=== PATIENT | female | born 1975 | race African-American/Black ===

== ENCOUNTER 2017-03-04 13:53 | Emergency (ER) | payer MEDICARE, MEDICAID ==
[~2017-03-04] VITALS: Ht 160 cm; Wt 55.0 kg
[2017-03-04] VITALS (7 sets, daily range): BP systolic 157–220; BP diastolic 89–119; PULSE 72–79; RESP 18; TEMP 98.6; O2SAT 97–99
[~2017-03-04 13:53] MED LIST: HYDR-2768 PO; LISI-360 PO; RISP2TAB2 PO
[2017-03-04] MEDS ORDERED: ATEN25TA PO (14:23)
[2017-03-04] MEDS ORDERED: hydrALAZINE HCL 20 MG/ML VIAL IV PUSH ONE ×2 (14:45→16:15)
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
[2017-03-04] MEDS ORDERED: TETANUS/DIPHTHERIA TOXOID ADULT 0.5 ML VIAL IM ONE (15:00)
[2017-03-04 15:12] LABS: AUTOMATED NEUTROPHIL # 2.7 TH/MM3 (1.8-7.7); BASOPHIL % 0.8 % (0.0-2.0); EOSINOPHIL % 0.8 % (0.0-4.0); HEMATOCRIT 36.5 % (35.0-46.0); HEMO FLAGS DIFF FINAL; LYMPH % 32.1 % (9.0-44.0); LYMPHOCYTE # 1.5 TH/MM3 (1.0-4.8); MEAN CELL VOLUME 74.7 FL (80.0-100.0); MEAN CORPUSCULAR HEMOGLOBIN 23.3 PG (27.0-34.0); MEAN CORPUSCULAR HGB CONC 31.2 % (32.0-36.0); MONO % 9.4 % (0.0-8.0); NEUT % 56.9 % (16.0-70.0); PLATELET COUNT 297 TH/MM3 (150-450); RED BLOOD COUNT 4.88 MIL/MM3 (4.00-5.30); RED CELL DISTRIBUTION WIDTH 14.6 % (11.6-17.2); WHITE BLOOD COUNT 4.7 TH/MM3 (4.0-11.0)
[2017-03-04 15:23] LABS: BACTERIA, URINE RARE /hpf; BLOOD, URINE SMALL (NEG); COMMENT (UR) CULTURE INDICATED; CULTURE IF INDICATED CULTURE INDICATED; GLUCOSE,URINE NEG (NEG); KETONE, URINE NEG (NEG); MUCUS URINE MANY /lpf (OCC); NITRITE,URINE NEG (NEG); PH, URINE 5.5 (5.0-8.5); SQUAMOUS EPITHELIAL CELL URINE 8 /hpf (0-5); URINE COLOR YELLOW (YELLW/STRAW)
[2017-03-04 15:29] LABS: ALT (GPT) 16 U/L (10-53); AMPHETAMINE, URINE NEG (NEG); ANION GAP 9 MEQ/L (5-15); AST (GOT) 17 U/L (15-37); BARBITURATES, URINE NEG (NEG); BICARBONATE 25.2 MEQ/L (21.0-32.0); BLOOD UREA NITROGEN 12 MG/DL (7-18); CHLORIDE 105 MEQ/L (98-107); COCAINE, URINE NEG (NEG); GLOMERULAR FILTRATION RATE 72 ML/MIN (>89); POTASSIUM 3.1 MEQ/L (3.5-5.1); SODIUM (NA) 139 MEQ/L (136-145)
[2017-03-04 15:31] LABS: ALKALINE PHOSPHATASE 69 U/L (45-117); TOTAL BILIRUBIN ADULT 0.7 MG/DL (0.2-1.0)
[2017-03-04] MEDS ORDERED: SULFAMETHOXAZOLE-TRIMETHOPRIM DS 800-160 MG TAB PO ONE (16:15)
[2017-03-04] MEDS ORDERED: POTASSIUM CHLORIDE 20 MEQ CONTROLLED RELEASE TAB PO ONE (17:00)
[2017-03-04] MEDS ORDERED: ATENOLOL 25 MG TAB PO ONE (22:15)
[2017-03-04] MEDS ORDERED: ACETAMINOPHEN 325 MG TAB PO ONE (22:15)
[2017-03-05 00:02] VITALS: BP 178/84; PULSE 69; RESP 18
[2017-03-05] MEDS ORDERED: KETOROLAC TROMETHAMINE 60 MG/2 ML (IM) VIAL IM ONE (00:15)
[2017-03-05 02:25] VITALS: BP 148/92; PULSE 74; RESP 18; O2SAT 100
[2017-03-05 06:28] VITALS: BP 161/93; PULSE 75; RESP 18; O2SAT 97
[2017-03-05 10:00] VITALS: BP 188/103; PULSE 64; RESP 18
[2017-03-05 10:45] VITALS: BP 182/105; PULSE 63
[2017-03-05] MEDS ORDERED: cloNIDine HCL 0.2 MG TAB PO ONE (11:00)
[2017-03-05 12:42] VITALS: BP 116/70; PULSE 62; RESP 16
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
== END 2017-03-05 15:30 | disposition home or self-care (01) ==
LOC: NEPD 13:53 → NEPJ 03-05 15:30
DX: F20.9 Schizophrenia, unspecified (principal); I10 Essential (primary) hypertension; R82.71 Bacteriuria; B96.20 Unspecified Escherichia coli [E. coli] as the cause of diseases classified elsewhere; S01.511A Laceration without foreign body of lip, initial encounter; Y04.2XXA Assault by strike against or bumped into by another person, initial encounter; Z23 Encounter for immunization
CPT/HCPCS: 80053; 80307; 81001; 84703; 85025; 87077; 87086; 87186; 90471; 90714; 96374; 96375; 99284; J0360; J1885

== ENCOUNTER 2017-05-18 09:39 | Inpatient (IN) | payer MEDICARE, MEDICAID ==
[~2017-05-18] VITALS: Ht 160 cm; Wt 55.2 kg
[~2017-05-18 09:39] MED LIST changes: +ATEN25TA PO; -HYDR-2768 PO; -LISI-360 PO; -RISP2TAB2 PO
[2017-05-18 10:21] VITALS: BP 181/96; PULSE 92; RESP 16; TEMP 98.3; O2SAT 100
--- NOTE | 2017-05-18 11:05 | PD ---
HPI Chief Complaint: Psychiatric Symptoms Time Seen by Provider: 10:26 Travel History International Travel<30 days: No Contact w/Intl Traveler<30days: No Traveled to known affect area: No History of Present Illness HPI So 42 year-old woman who presents to the emergency department under a Brooke act. She reportedly received an eviction notice today and is here "getting my vitals checked". She is extremely flat in her affect, monotone, and extremely difficult to get any meaningful history out of. Review of the records shows that she was admitted with schizophrenia for evaluation a few months ago. Her had just left. The water and internal couple months ago because it was not paying bills. Patient endorses that she is on SSI vital cannot or will not so me why. She states that she's not employed because she is "not in the workforce". She states something happened that led to her not being able to pay her rent that she again cannot or will not tell me what that was. She states "it's really self explanatory but I cannot explain it". When asked explicitly denies any past medical history or any history of mental health problems. History Past Medical History Narrative Medical Medical records indicate a history of schizophrenia LMP: 05/11/17 : 2 Past Surgical History Surgical History: No Previous Surgery Social History Alcohol Use: No Tobacco Use: No Allergies-Medications (Allergen,Severity, Reaction): Coded Allergies: No Known Allergies (Unverified , 12/17/13) Reported Meds & Prescriptions Reported Meds & Active Scripts Active Review of Systems Except as stated in HPI: all other systems reviewed are Neg Physical Exam Narrative GENERAL: 42 year-old woman, flat affect, poor eye contact. SKIN: Focused skin assessment warm/dry. HEAD: Atraumatic. Normocephalic. EYES: Pupils equal and round. No scleral icterus. No injection or drainage. ENT: No nasal bleeding or discharge. Mucous membranes pink and moist. NECK: Trachea midline. No JVD. CARDIOVASCULAR: Regular rate and rhythm. No murmur appreciated. RESPIRATORY: No accessory muscle use. Clear to auscultation. Breath sounds equal bilaterally. GASTROINTESTINAL: Abdomen soft, non-tender, nondistended. Hepatic and splenic margins not palpable. MUSCULOSKELETAL: No obvious deformities. No clubbing. No cyanosis. No edema. NEUROLOGICAL: Awake and alert. No obvious cranial nerve deficits. Motor grossly within normal limits. Normal speech. PSYCHIATRIC: Patient appears psychotic, flat, poor eye contact. Data Data Last Documented VS Vital Signs Date Time Temp Pulse Resp B/P Pulse Ox O2 Delivery O2 Flow Rate FiO2 05/18/17 10:26 92 16 05/18/17 10:21 98.3 181/96 100 Orders Complete Blood Count With Diff (05/18/17 10:56) Comprehensive Metabolic Panel (05/18/17 10:56) Psych Screen (05/18/17 10:56) Drug Screen, Random Urine (05/18/17 10:56) MDM Medical Decision Making Medical Screen Exam Complete: Yes Emergency Medical Condition: Yes Differential Diagnosis Psychosis, PDD, MR, other Narrative Course Medical decision making Is a 42 year-old woman who presents to the emergency department after being evicted. She appears to have untreated schizophrenia this is stabilized to the point that she is now unable to function independently for a number of months. She has no somatic complaints. We'll check screening labs. She is medically clear for psychiatric evaluation. Diagnosis Primary Impression: Schizophrenia Bhavin Frey MD May 18, 2017 11:05
[2017-05-18 11:27] LABS: AUTOMATED NEUTROPHIL # 3.4 TH/MM3 (1.8-7.7); BASOPHIL % 0.9 % (0.0-2.0); EOSINOPHIL % 0.1 % (0.0-4.0); HEMATOCRIT 21.8 % (35.0-46.0); HEMO FLAGS DIFF FINAL; LYMPH % 16.3 % (9.0-44.0); LYMPHOCYTE # 0.7 TH/MM3 (1.0-4.8); MEAN CELL VOLUME 74.7 FL (80.0-100.0); MEAN CORPUSCULAR HEMOGLOBIN 25.1 PG (27.0-34.0); MEAN CORPUSCULAR HGB CONC 33.7 % (32.0-36.0); MONO % 7.9 % (0.0-8.0); NEUT % 74.8 % (16.0-70.0); PLATELET COUNT 332 TH/MM3 (150-450); RED BLOOD COUNT 2.92 MIL/MM3 (4.00-5.30); WHITE BLOOD COUNT 4.6 TH/MM3 (4.0-11.0)
[2017-05-18 11:46] LABS: ANION GAP 6 MEQ/L (5-15); AST (GOT) 13 U/L (15-37); BICARBONATE 26.5 MEQ/L (21.0-32.0); BLOOD UREA NITROGEN 11 MG/DL (7-18); CHLORIDE 106 MEQ/L (98-107); GLOMERULAR FILTRATION RATE 74 ML/MIN (>89); POTASSIUM 3.2 MEQ/L (3.5-5.1); SODIUM (NA) 138 MEQ/L (136-145)
[2017-05-18 11:47] LABS: ALT (GPT) 12 U/L (10-53)
[2017-05-18 11:49] LABS: ALKALINE PHOSPHATASE 51 U/L (45-117); TOTAL BILIRUBIN ADULT 0.5 MG/DL (0.2-1.0)
[2017-05-18 15:30] VITALS: BP 193/100; PULSE 69; RESP 18; TEMP 98.7; O2SAT 100
[2017-05-18] MEDS ORDERED: ATENOLOL 50 MG TAB PO ONE (17:30)
[2017-05-18 22:20] VITALS: BP 162/81; PULSE 62; RESP 18
[2017-05-19 05:56] VITALS: BP 155/82; PULSE 57; RESP 16
[2017-05-19 10:00] VITALS: BP 169/95; PULSE 62; RESP 20
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
[2017-05-19] MEDS ORDERED: MAGNESIUM HYDROXIDE SUSP 30 ML CUP PO PRN (13:00)
[2017-05-19] MEDS ORDERED: ALUMINUM/MAGNESIUM/SIMETH 30 ML CUP PO PRN (13:00)
[2017-05-19] MEDS ORDERED: ACETAMINOPHEN 325 MG TAB PO PRN (13:00)
[2017-05-19 13:15] VITALS: BP 188/102; PULSE 75; RESP 16; TEMP 97.7
[2017-05-19] MEDS ORDERED: POTASSIUM CHLORIDE 10 MEQ CONTROLLED RELEASE TAB PO ONE (15:00)
--- NOTE | 2017-05-19 15:55 | PD.CONS ---
[facility] By PANCHO Rick Reason for Consult Abnormal lab results. Primary Care Physician No Primary Care Physician Diagnoses: History of Present Illness Written by Foster Meehan, acting as scribe for Dr. Geo Hanna on 05/19/17 at 15: 55. Ms. Posey is 42 yo, with a reported history of hypertension and untreated x 4 years who presents to the emergency department under a [place] act. The BA alleges that she was evicted and when deputies arrived she barricaded herself in the residence. When they were able to enter the residence she covered her face and would not speak with them. She was placed under BA as the police felt she was unsafe and needed treatment. On arrival to Ed she was not providing any meaningful history to ED provider. Making statements such as "it's really self explanatory but I cannot explain it". Per the medical record, Ms. Posey was evaluated in February after she was placed under a BA. The records indicate she was living with her and had been without water and electricity for the past 6 months. She could not provide an explanation for their situation. Upon discharge she was released to the care of her Ritchie. Today, Ms. Posey was encountered in her room on the 2600 unit, she was tearful and reported "missing my ." She did not explain why she was hospitalized. She spoke with a soft voice and her answers were short. She evidenced comprehension issues when Dr. Hanna discussed the treatment for anemia and the potential need for blood transfusion. Pt did not provide a definitive answer regarding blood transfusion as her hemoglobin upon admission was 7.3. She reported her last menstrual cycle was 05/11/17; cycles were reported to be "once a month." Pt denied fever, cough, shortness of breath, dizziness, chest pain, bloody urine or stool, NVD, abdominal pain, or difficulty with ambulation. A 10 point ROS was completed and, except as noted above, was negative. Past Family Social History Allergies: Coded Allergies: No Known Allergies (Unverified , 12/17/13) Past Medical History Hypertension Schizophrenia, untreated for past 4 years. Past Surgical History Previous surgical history was denied. Reported Medications Pt denied taking any prescribed medications at this time. Active Ordered Medications Current Medications Medications (Trade) Dose Ordered Sig/Soy Route Start Time Stop Time Status Last Admin (Tylenol) 650 mg Q4H PRN PO 05/19/17 13:00 (Milk Of Magnesia Liq) 30 ml DAILY PRN PO 05/19/17 13:00 (Mag-Al Plus Susp Liq) 30 ml Q6H PRN PO 05/19/17 13:00 Family History Patient said she was unaware of family medical history. She denied diabetic and heart disease histories. Social History Pt denied nicotine use. Alcohol use was denied. Illicit and/or recreational drugs were denied. Physical Exam Vital Signs Vital Signs Date Time Temp Pulse Resp B/P Pulse Ox O2 Delivery O2 Flow Rate FiO2 05/19/17 13:15 97.7 75 16 188/102 05/19/17 10:00 62 20 169/95 Auto-Vent 05/19/17 05:56 57 16 155/82 05/18/17 22:20 62 18 162/81 Physical Exam GENERAL: This is a well-nourished, well-developed patient, in no apparent distress. SKIN: No rashes, ecchymoses or lesions. Cool and dry. HEAD: Atraumatic. Normocephalic. No temporal or scalp tenderness. EYES: Pupils equal round and reactive. Extraocular motions intact. No scleral icterus. No injection or drainage. ENT: Nose without bleeding or purulent drainage. Airway patent. NECK: Trachea midline. No lymphadenopathy. Supple and nontender. CARDIOVASCULAR: Regular rate and rhythm without murmurs, gallops, or rubs. RESPIRATORY: Clear to auscultation. Breath sounds equal bilaterally. No wheezes , rales, or rhonchi. GASTROINTESTINAL: Abdomen soft, non-tender, nondistended. No hepato- splenomegaly or guarding. MUSCULOSKELETAL: Extremities without clubbing, cyanosis, or edema. No joint tenderness, effusion, or edema noted. NEUROLOGICAL: Awake and alert. Cranial nerves II through XII intact. Motor and sensory grossly within normal limits. Five out of 5 muscle strength in all muscle groups. Speech was soft yet fluent. Result Diagram: 05/18/17 1109 05/18/17 110 Assessment and Plan Assessment and Plan Ms. Posey is 42 yo, with a reported history of hypertension and untreated x 4 years who presents to the emergency department under a [place] act. The BA alleges that she was evicted and when deputies arrived she barricaded herself in the residence. When they were able to enter the residence she covered her face and would not speak with them. She was placed under BA as the police felt she was unsafe and needed treatment. On arrival to Ed she was not providing any meaningful history to ED provider. Making statements such as "it's really self explanatory but I cannot explain it". Schizophrenia -Treatment deferred to primary team. Microcytic anemia - Iron/TIBC studies -B-12 lab -serum folate -fecal occult blood -CBC in the AM Thank you for the consult. Hospitalist team will continue to follow This note was transcribed by shanel LAWRENCE . I, Dr. Cheryl Hanna personally performed the history, physical exam, and medical decision making; and confirmed the accuracy of the information in the transcribed note. Authenticated by Dr. Cheryl Hanna on 05/19/17 at 15:55. Discussed Condition With Patient and [facility] plans staff officer Foster Meehan Jr. May 19, 2017 15:55 Cheryl Hanna MD May 19, 2017 19:34
[2017-05-19 20:39] LABS: FERRITIN 2 NG/ML (8-252); TRANSFERRIN IRON PROFILE 190 MG/DL (200-360)
[2017-05-20 06:25] VITALS: BP 135/87; PULSE 75; RESP 18; TEMP 98; O2SAT 99
[2017-05-20 12:12] LABS: HEMATOCRIT 22.8 % (35.0-46.0); MEAN CELL VOLUME 75.1 FL (80.0-100.0); MEAN CORPUSCULAR HEMOGLOBIN 24.8 PG (27.0-34.0); PLATELET COUNT 410 TH/MM3 (150-450); RED BLOOD COUNT 3.03 MIL/MM3 (4.00-5.30); RED CELL DISTRIBUTION WIDTH 16.2 % (11.6-17.2); REVIEW FLAG FINAL; WHITE BLOOD COUNT 6.1 TH/MM3 (4.0-11.0)
[2017-05-20 12:18] LABS: ANION GAP 6 MEQ/L (5-15); BICARBONATE 27.7 MEQ/L (21.0-32.0); BLOOD UREA NITROGEN 11 MG/DL (7-18); CHLORIDE 105 MEQ/L (98-107); GLOMERULAR FILTRATION RATE 78 ML/MIN (>89); POTASSIUM 3.6 MEQ/L (3.5-5.1); SODIUM (NA) 139 MEQ/L (136-145)
[2017-05-20 12:21] LABS: HDL CHOLESTEROL 85.1 MG/DL (40.0-60.0); LDL CHOLESTEROL 57 MG/DL (0-99)
[2017-05-20] MEDS ORDERED: OLANZapine IM 10 MG VIAL IM PRN (13:45)
[2017-05-20] MEDS: OLANZapine 10 MG TAB PO SCH ×2 (14:02→20:56)
--- NOTE | 2017-05-20 15:24 | HHI.HP ---
Provisional Diagnosis Admission Date May 19, 2017 at 11:35 [place] I. Schizophrenia [place] II. Deferred [place] III. Hypertension Certification of Person's Competence To Provide Express and Informed Consent I have personally examined Cony Posey , a person being served at [facility] on, May 20, 2017 15:11. Express and informed consent means consent voluntarily given in writing, by a competent person, after sufficient explanation and disclosure of the subject matter involved to enable the person to make a knowing and willful decision without any element of force, fraud, deceit, duress, or other form of constraint or coercion. This person is 18 years of age or older, is not now known to be incompetent to consent to treatment with a guardian advocate, and does not have a health care surrogate or proxy currently making medical treatment decisions. I have found this person to be one of the following: [] Competent to provide express and informed consent, as defined above, for voluntary admission to this facility and is competent to provide express and informed consent for treatment. He/she has the consistent capacity to make well reasoned, willful, and knowing decisions concerning his or her medical or mental health treatment. The person fully and consistently understands the purpose of the admission for examination/placement and is fully capable of personally exercising all rights assured [place] [X] Incompetent to provide express and informed consent to voluntary admission, and this is incompetent to provide express and informed consent to treatment. The person must be transferred to involuntary status and a petition for a guardian advocate filed with the Circuit Court. [] Refusing to provide express and informed consent to voluntary admission but is competent to provide express and informed consent for treatment. The person must be discharged or transferred to involuntary status. Form shall be completed within 24 hours of a person's arrival at the receiving facility and filed in the clinical record of each person: 1. Admitted on a voluntary basis 2. Permitted to provide express and informed consent to his/her own treatment 3. Allowed to transfer from involuntary to voluntary status 4. Prior to permitting a person to consent to his or her own treatment after having been previously found incompetent to consent to treatment. History of Present Illness Capacity: Lacks Capacity HPI As per Miss Seo in the ER : "42 year-old woman with a reported history os schizophrenia , untreated x 4 years who presents to the emergency department under a [place] act. The BA alleges that she was evicted and when deputies arrived she barricaded herself in the residence. When they were able to enter the residence she covered her face and would not speak with them. She was placed under BA as the police felt she was unsafe and needed treatment. On arrival to Ed she was not providing any meaningful history to ED provider. Making statements such as "it's really self explanatory but I cannot explain it". EMR is reviewed. She was evaluated in February after she was placed under a BA. At the time she was living with her and had been living without water and electricity x 6 months. She could not provide an explanation for that. She was released to the care of her Ritchie. Patient is seen with Nurse David. She is alert and oriented. She is withdrawn and does not initiate any contact with staff. She maintain little to no eye contact. Her affect is blunted . Her speech is monotone. She appears internally preoccupied although she denies hallucinations. When asked about why she was evicted she thinks for a while and then states " something happened". When asked about her she states " people happened that are not my ". When inquiring about family states " I have no family and I have never had any family. Nothing has happened." When asked where she will go if discharged states " I will just have to listen to my thoughts about it". In terms of substance she presents wit negative toxicology." 05/20/2017 the patient is a 42-year-old woman, domiciled with her in [facility], with psychiatric history of schizophrenia, noncompliant with medications, medical history of hypertension, who was brought to the ER under [place] act due to erratic and aggressive behavior at home, as per EMR documentation patient barricaded in her house. No psychotic evaluation today patient seems to be distant, oppositional and resistant. She answers some selective question but, in a very avoiding way. Patient says that she doesn't understand what she is here. She becomes disorganized and tangential. She says that everything about her needs to be asked to her "super hero and supernatural ". Patient is oddly related, guarded, visibly internally preoccupied and paranoid. Patient has been isolated in the unit, avoiding contact with staff and peers, refusing to take her medications. Review of Systems Constitutional: DENIES: Diaphoretic episodes, Fatigue, Fever, Weight gain, Weight loss, Chills, Dizziness, Change in appetite, Night Sweats Endocrine: DENIES: Abnorml menstrual pattern, Heat/cold intolerance, Polydipsia , Polyuria, Polyphagia Eyes: DENIES: Blurred vision, Diplopia, Eye inflammation, Eye pain, Vision loss , Photosensitivity, Double Vision Ears, nose, mouth, throat: DENIES: Tinnitus, Hearing loss, Vertigo, Nasal discharge, Oral lesions, Throat pain, Hoarseness, Ear Pain, Running Nose, Epistaxis, Sinus Pain, Toothache, Odynophagia Respiratory: DENIES: Apneas, Cough, Snoring, Wheezing, Hemoptysis, Sputum production, Shortness of breath Gastrointestinal: DENIES: Abdominal pain, Black stools, Bloody stools, Constipation, Diarrhea, Nausea, Vomiting, Difficulty Swallowing, Anorexia Musculoskeletal: DENIES: Joint pain, Muscle aches, Stiffness, Joint Swelling, Back pain, Neck pain Hematologic/lymphatic: DENIES: Bruising, Lymphadenopathy Immunologic/allergic: DENIES: Eczema, Urticaria Neurologic: DENIES: Abnormal gait, Headache, Localized weakness, Paresthesias, Seizures, Speech Problems, Tremor, Poor Balance Psychiatric: COMPLAINS OF: Delusions, DENIES: Anxiety, Confusion, Mood changes , Depression, Hallucinations, Agitation, Suicidal Ideation, Homicidal Ideation Substance Abuse History Drugs/Alcohol past 12 months She denies the use of alcohol and drugs Past Family Social History Coded Allergies: No Known Allergies (Unverified , 12/17/13) Discontinued Reported Medications Atenolol 25 Mg Tab25 Mg PO DAILY #30 TAB 03/04/17 Current Medications Medications (Trade) Dose Ordered Sig/Soy Route Start Time Stop Time Status Last Admin (Tylenol) 650 mg Q4H PRN PO 05/19/17 13:00 (Milk Of Magnesia Liq) 30 ml DAILY PRN PO 05/19/17 13:00 (Mag-Al Plus Susp Liq) 30 ml Q6H PRN PO 05/19/17 13:00 (ZyPREXA) 10 mg Q12HR PO 05/20/17 14:00 05/20/17 14:02 (ZyPREXA INJ) 10 mg Q12H PRN IM 05/20/17 13:45 Family History She denies family psychiatric history Social History Patient lives with her in [facility], but not many other circumstances of her social life known as at this moment. Physical Exam Vital Signs Vital Signs Date Time Temp Pulse Resp B/P Pulse Ox O2 Delivery O2 Flow Rate FiO2 05/20/17 06:25 98.0 75 18 135/87 99 05/19/17 10:00 Auto-Vent Mental Status Examination Appearance woman, age appearing, non-cooperative, distant, guarded Speech: Hesitant Orientation: x3 Memory: Impaired (describe) Thought Process: Loose Association, Thought Blocking Thought Content: Paranoid Language Limited due to level of psychosis Fund of Knowledge Limited due to level of psychosis Suicidal Ideation: No Previous Suicide Attempts: No Homicidal Ideation: No Previous Homicide Attempts: No Judgment: Poor Affect: Oppositional Affect if Inappropriate: Blunt Mood: Sad Motor Activity: Normal gait Assessment & Plan Problem List: (1) Schizophrenia Assessment & Plan: On psychiatric evaluation today the patient presents acutely psychotic, guarded, with poverty of speech, visibly paranoid and internally preoccupied, with pronounced blocking thought. Further collateral information is needed in order to complete the psychiatric assessment. Patient will be started in olanzapine 5 mg twice a day for psychosis, olanzapine 10 mg IM every 12 hours when necessary aggressive behavior and agitation will be ordered. Patient definitely meets criteria for involuntary psychiatric admission. Will consult psychiatry for second opinion. ICD Code: F20.9 Assessment & Plan Estimated LOS: days Problem Qualifiers (1) Schizophrenia: Qualified Code: F20.3 - Undifferentiated schizophrenia Dalton Woodard MD May 20, 2017 15:24
[2017-05-20 18:34] VITALS: BP 135/76; PULSE 75; RESP 16; TEMP 98.3; O2SAT 100
[2017-05-21 06:00] VITALS: BP 139/87; PULSE 66; RESP 18; TEMP 98.4; O2SAT 100
[2017-05-21] MEDS: OLANZapine 10 MG TAB PO SCH ×2 (08:47→20:50)
--- NOTE | 2017-05-21 13:46 | PD.TTN ---
Present for Treatment Team Treatment Team Staff: Provider (Dr. Joseph), Nurse (Aldo), Psych Therapist ( STEVE Mullins), Occupational Therapist (Grayson) Patient Problems 1. Discharge planning 2. Medication compliance 3. Knowledge deficit 4. Lack of coping skills Progress Toward Goals Provider Input: Dr. Joseph requested an update regarding patient's medication compliance, mental status, and reason for admission. Nurse Input: Nurse Aldo reported the patient is a new admission and described her behavior to be bizarre. Adlo reported the patient is homeless after recently being evicted from her apartment. Patient is not forthcoming with information and reported her husbands are "supernatural." Psych Therapist Input: Counselor has yet to meet with this patient as she is a new admission from over the weekend. Counselor will meet with patient today. Occupational Therapist Input: Patient is not attending groups. Documentation Scribe: Steve Mullins Date Resolved: May 21, 2017 Christie Oakley May 21, 2017 13:46
--- NOTE | 2017-05-21 15:49 | HHI.PYPN ---
Subjective Remarks Patient seen in her room with nurse Dilan and counselor Christie patient showing significant thought blocking responses are markedly delayed. Though she reluctantly is acknowledging auditory hallucinations of a command belittling nature it appears been evicted from her place of residence it appears she is homeless wishes quite evasive about answering any questions. Though with counselor did find out that she had been on Zyprexa in the past. Patient initially seen by Dr. Pearson did do first opinion petition supporting Bro[place] act. I do agree with this patient does meet criteria for involuntary psychiatric hospitalization under the Brooke act thus I will do second opinion petition supporting the Brooke act. Dr. Pearson his ordered Zyprexa 10 mg twice a day we'll continue that at the present time Review of Systems Except as stated in HPI: all other systems reviewed are Neg Objective Alert: Yes [place]: Person Mood: Calm Affect: Blunted Memory Intact: Comment (unable to test) Hallucinations: Auditory (voices are threatening demanding and demeaning) Delusions: Yes Delusion Type: Paranoid Suicidal: Ideation (deneis ) Homicidal: Ideation (deneis) Insight/Judgment Very poor Vitals/IOs Vital Signs Date Time Temp Pulse Resp B/P Pulse Ox O2 Delivery O2 Flow Rate FiO2 05/21/17 06:00 98.4 66 18 139/87 100 05/19/17 10:00 Auto-Vent Intake and Output 05/20/17 05/20/17 05/21/17 08:00 16:00 00:00 Intake Total 240 ml Balance 240 ml Assessment & Plan Problem List: (1) Schizophrenia ICD Code: F20.9 Assessment & Plan Estimated LOS: days patient psychotic and paranoid with increase auditory hallucinations. Now continue medication no change Justification for Cont. Inpt. At this time patient will decompensate the placed a lower level of care Discharge Planning To be determined Problem Qualifiers (1) Schizophrenia: Qualified Code: F20.3 - Undifferentiated schizophrenia Kevon Joseph MD May 21, 2017 15:49
[2017-05-21 17:36] LABS: HEMOGLOBIN A1a 1.3 %; HEMOGLOBIN A1b 0.6 %; HEMOGLOBIN Ao 86.6 %; HEMOGLOBIN F 1.1 %; HEMOGLOBIN LA1C 1.6 %; HEMOGLOBIN P3 3.3 %
--- NOTE | 2017-05-21 18:00 | HHI.PR ---
Objective Vitals Vital Signs Date Time Temp Pulse Resp B/P Pulse Ox O2 Delivery O2 Flow Rate FiO2 05/21/17 06:00 98.4 66 18 139/87 100 05/20/17 18:34 98.3 75 16 135/76 100 I/O 05/20/17 05/20/17 05/20/17 05/21/17 05/21/17 05/21/17 06:59 14:59 22:59 06:59 14:59 22:59 Intake Total 240 ml Balance 240 ml Intake Oral 240 ml Result Diagram: 05/20/17 1145 05/20/17 1145 Eddie Abebe MD May 21, 2017 18:00
[2017-05-21 18:25] VITALS: BP 124/86; PULSE 74; RESP 18; TEMP 98.2; O2SAT 100
--- NOTE | 2017-05-21 22:59 | HHI.PR ---
Subjective Remarks Deferred entry - patient seen earliert at 18:00 denies cp/sob denie dizziness denies melena/hematochezia when asked states her last period was thicker and had clots hemoglobin stable at 7.5 Objective Vitals Vital Signs Date Time Temp Pulse Resp B/P Pulse Ox O2 Delivery O2 Flow Rate FiO2 05/21/17 18:25 98.2 74 18 124/86 100 05/21/17 06:00 98.4 66 18 139/87 100 I/O 05/20/17 05/20/17 05/20/17 05/21/17 05/21/17 05/21/17 07:00 15:00 23:00 07:00 15:00 23:00 Intake Total 240 ml Balance 240 ml Intake Oral 240 ml Result Diagram: 05/20/17 1145 05/20/17 1145 Objective Remarks AAOX3 NAD Pale conjunctiva S1S2 RRR, no MRG Clear lungs BL no edema in extremities Medications and IVs Current Medications Medications (Trade) Dose Ordered Sig/Soy Route Start Time Stop Time Status Last Admin (Tylenol) 650 mg Q4H PRN PO 05/19/17 13:00 (Milk Of Magnesia Liq) 30 ml DAILY PRN PO 05/19/17 13:00 (Mag-Al Plus Susp Liq) 30 ml Q6H PRN PO 05/19/17 13:00 (ZyPREXA) 10 mg Q12HR PO 05/20/17 14:00 05/21/17 20:50 (ZyPREXA INJ) 10 mg Q12H PRN IM 05/20/17 13:45 (Ferrous Sulfate) 325 mg BID@ PO 05/22/17 12:00 A/P Problem List: (1) Schizophrenia ICD Code: F20.9 Status: Acute Plan: Management as per psychiatry. The patient is currently on Zyprexa. Will start on ferrous sulfate. (2) Microcytic anemia ICD Code: D50.9 Status: Acute Plan: Iron studies concurrent with iron deficiency anemia. Suspect 2/2 to heavy periods will check a pelvic ultrasound and stool guaiac (3) Hypokalemia ICD Code: E87.6 Status: Resolved Plan: Replaced orally, K level normal. Assessment and Plan DVT prophylaxi: add PPI Problem Qualifiers (1) Schizophrenia: Qualified Code: F20.3 - Undifferentiated schizophrenia Eddie Abebe MD May 21, 2017 22:59
[2017-05-22 05:55] VITALS: BP 132/79; PULSE 67; RESP 18; TEMP 98.4; O2SAT 100
[2017-05-22] MEDS: OLANZapine 10 MG TAB PO SCH ×2 (08:22→21:00)
[2017-05-22] MEDS: PANTOPRAZOLE SOD 40 MG DELAYED RELEASE TAB PO SCH (08:22)
[2017-05-22] MEDS: FERROUS SULFATE 325 MG (65 MG ELEMENTAL IRON) TAB PO SCH ×2 (12:14→17:03)
--- NOTE | 2017-05-22 16:41 | HHI.PYPN ---
Subjective Remarks Patient seen in her room with medical student Radha. Chart review. Patient continues to isolate showing marked vigilance and thought blocking. She continues to refuse labs recommended and procedures recommended by medicine service. States she does not need those. She also states that after discharge she will not take her oral medications though patient is taking her Zyprexa at the present time for now continue treatment Review of Systems Except as stated in HPI: all other systems reviewed are Neg Objective Alert: Yes [place]: Person Mood: Calm Affect: Blunted Memory Intact: Comment (unable to test) Hallucinations: Auditory (voices are threatening demanding and demeaning) Delusions: Yes Delusion Type: Paranoid Suicidal: Ideation (deneis ) Homicidal: Ideation (deneis) Insight/Judgment Very poor Vitals/IOs Vital Signs Date Time Temp Pulse Resp B/P Pulse Ox O2 Delivery O2 Flow Rate FiO2 05/22/17 05:55 98.4 67 18 132/79 100 05/19/17 10:00 Auto-Vent Assessment & Plan Problem List: (1) Schizophrenia ICD Code: F20.9 Assessment & Plan Estimated LOS: days patient continues somewhat psychotic and paranoid showing no insight into disease. While taking medication now she states she will discontinue it and not take it upon discharge Justification for Cont. Inpt. At this time patient will decompensate the placed in the lower level of care Discharge Planning To be determined Problem Qualifiers (1) Schizophrenia: Qualified Code: F20.3 - Undifferentiated schizophrenia Kevon Joseph MD May 22, 2017 16:41
[2017-05-23 05:01] VITALS: BP 126/86; PULSE 70; RESP 16; TEMP 97.7; O2SAT 97
[2017-05-23] MEDS: OLANZapine 10 MG TAB PO SCH ×2 (09:00→20:51)
[2017-05-23] MEDS: PANTOPRAZOLE SOD 40 MG DELAYED RELEASE TAB PO SCH (09:29)
--- NOTE | 2017-05-23 09:42 | HHI.PR ---
Blank section for building Discussed case with Dr. Cisneros. Patient refusing labs draws, Pelvic US and stool guaiac. Continue to recommend: Ferrous Sulfate 325 mg BID repeat CBC, pelvic ultrasound and stool guaiac F/U with PCP and FAMILY INDEPENDENCE CASE MANAGER after DC Will sign off at this time if patient's condition changes or patient agreeable to work up please reconsult. Thank you Written by Hazel Patton, acting as scribe for Dr. Cisneros on 05/23/17 at 09:41. Hazel Patton May 23, 2017 09:42
[2017-05-23] MEDS: FERROUS SULFATE 325 MG (65 MG ELEMENTAL IRON) TAB PO SCH ×2 (12:28→17:26)
--- NOTE | 2017-05-23 13:33 | HHI.PYPN ---
Subjective Remarks Patient seen in the [place] with nurse Cynthia. Chart reviewed. Patient compliant medications. Though continues to state she will not take medication in the community patient continues to refuse workup related to her significant anemia. Attempted to discuss this with her. She remains quite psychotic with marked thought blocking marked delayed verbal responses showing no insight. Also markedly blunted affect. Patient scheduled for [place] [facility] tomorrow Review of Systems Except as stated in HPI: all other systems reviewed are Neg Objective Alert: Yes [place]: Person Mood: Calm Affect: Blunted Memory Intact: Comment (unable to test) Hallucinations: Auditory (voices are threatening demanding and demeaning) Delusions: Yes Delusion Type: Paranoid Suicidal: Ideation (deneis ) Homicidal: Ideation (deneis) Insight/Judgment Very poor Vitals/IOs Vital Signs Date Time Temp Pulse Resp B/P Pulse Ox O2 Delivery O2 Flow Rate FiO2 05/23/17 05:01 97.7 70 16 126/86 97 05/19/17 10:00 Auto-Vent Assessment & Plan Problem List: (1) Schizophrenia ICD Code: F20.9 Assessment & Plan Estimated LOS: days patient remained psychotic of marked thought blocking, marked blunted affect. Patient scheduled for [place] [facility] tomorrow Justification for Cont. Inpt. At this time patient will decompensate if placed in a lower level of care Discharge Planning To be determined Problem Qualifiers (1) Schizophrenia: Qualified Code: F20.3 - Undifferentiated schizophrenia Kevon Joseph MD May 23, 2017 13:32
[2017-05-24 05:34] VITALS: BP 138/76; PULSE 74; RESP 18; TEMP 98.5; O2SAT 100
[2017-05-24] MEDS: PANTOPRAZOLE SOD 40 MG DELAYED RELEASE TAB PO SCH (08:31)
[2017-05-24] MEDS: OLANZapine 10 MG TAB PO SCH ×2 (08:31→21:00)
[2017-05-24] MEDS: FERROUS SULFATE 325 MG (65 MG ELEMENTAL IRON) TAB PO SCH ×2 (10:54→16:32)
--- NOTE | 2017-05-24 15:33 | HHI.PYPN ---
Subjective Remarks Patient seen in [place], patient retained by analog circuit designer, surinder to be appointed guardian advocate. Patient later seen in her room with nurse Heather. Attempted to discuss [place] findings. Attempted to speak also about her significant anemia with her continued vaginal bleeding, and the significant risks to help out with this indicates. And her need for the appropriate testing. But she is refusing. I will discuss with medical ethics the possibility of getting permission for these tests by the guardian advocate. Review of Systems Except as stated in HPI: all other systems reviewed are Neg Objective Alert: Yes [place]: Person Mood: Calm Affect: Blunted Memory Intact: Comment (unable to test) Hallucinations: Auditory (voices are threatening demanding and demeaning) Delusions: Yes Delusion Type: Paranoid Suicidal: Ideation (deneis ) Homicidal: Ideation (deneis) Insight/Judgment Very poor Vitals/IOs Vital Signs Date Time Temp Pulse Resp B/P Pulse Ox O2 Delivery O2 Flow Rate FiO2 05/24/17 05:34 98.5 74 18 138/76 100 Assessment & Plan Problem List: (1) Schizophrenia ICD Code: F20.9 Assessment & Plan Estimated LOS: days patient retained by analog circuit designer in [place] [address]. surinder to be guardian advocate. Will request medical ethics to give opinion about continuing testing with permission of guardian advocate but without without patient's permission Justification for Cont. Inpt. At this time patient will decompensate if placed in a lower level of care Discharge Planning To be determined Request HC Surrog/Guard Advoc?: Yes Problem Qualifiers (1) Schizophrenia: Qualified Code: F20.3 - Undifferentiated schizophrenia Kevon Joseph MD May 24, 2017 15:33
[2017-05-24 18:22] VITALS: BP 171/92; PULSE 74; RESP 18; TEMP 98.4; O2SAT 100
[2017-05-25 05:32] VITALS: BP 156/89; PULSE 78; RESP 18; TEMP 98.8
[2017-05-25] MEDS: PANTOPRAZOLE SOD 40 MG DELAYED RELEASE TAB PO SCH (08:32)
[2017-05-25] MEDS: OLANZapine 10 MG TAB PO SCH ×2 (08:32→21:25)
--- NOTE | 2017-05-25 10:15 | HHI.PYPN ---
Subjective Remarks Patient seen in day room with nurse Heather chart review, patient overall compliant medications. We continue to discuss with her the need for cooperation with testing related to her continued vaginal bleeding. Her most recent hemoglobin was 7.5 on 05/20 will repeat CBC in a.m. tomorrow. In any event I did talk with her wonders discuss the possibility of restraining her to do these tests she became really angry and yelled at me turned and stormed off. Is paranoia vigilance with no insight show itself Review of Systems Except as stated in HPI: all other systems reviewed are Neg Objective Alert: Yes [place]: Person Mood: Calm Affect: Blunted Memory Intact: Comment (unable to test) Hallucinations: Auditory (voices are threatening demanding and demeaning) Delusions: Yes Delusion Type: Paranoid Suicidal: Ideation (deneis ) Homicidal: Ideation (deneis) Insight/Judgment Very poor Vitals/IOs Vital Signs Date Time Temp Pulse Resp B/P Pulse Ox O2 Delivery O2 Flow Rate FiO2 05/25/17 05:32 98.8 78 18 156/89 05/24/17 18:22 100 Intake and Output 05/24/17 05/24/17 05/24/17 07:59 15:59 23:59 Intake Total 480 ml Balance 480 ml Assessment & Plan Problem List: (1) Schizophrenia ICD Code: F20.9 Assessment & Plan Estimated LOS: days patient remained psychotic delusional paranoid. Affect resistance to any testing to help determine the cause of her significant anemia and continued vaginal bleeding Justification for Cont. Inpt. At this time patient will decompensate then placed in a lower level of care Discharge Planning To be determined Request HC Surrog/Guard Advoc?: Yes Problem Qualifiers (1) Schizophrenia: Qualified Code: F20.3 - Undifferentiated schizophrenia Kevon Joseph MD May 25, 2017 10:15
[2017-05-25] MEDS: FERROUS SULFATE 325 MG (65 MG ELEMENTAL IRON) TAB PO SCH ×2 (13:06→17:05)
[2017-05-25 20:30] VITALS: BP 174/97; PULSE 80; RESP 16; TEMP 98.5; O2SAT 99
[2017-05-26 05:34] VITALS: BP 171/98; PULSE 67; RESP 18; TEMP 98.2; O2SAT 100
[2017-05-26] MEDS: PANTOPRAZOLE SOD 40 MG DELAYED RELEASE TAB PO SCH (08:22)
[2017-05-26] MEDS: OLANZapine 10 MG TAB PO SCH ×2 (08:22→21:29)
[2017-05-26 09:00] VITALS: BP 164/80; PULSE 80
[2017-05-26] MEDS: FERROUS SULFATE 325 MG (65 MG ELEMENTAL IRON) TAB PO SCH ×2 (12:33→16:48)
--- NOTE | 2017-05-26 14:13 | HHI.PYPN ---
Subjective Remarks Patient was seen and case discussed with nursing. Blood pressures have been elevated. Psychoeducation was done about her hemoglobin but patient remains oppositional and refuses any diagnostic procedures. Patient says she is being watched. Says her reason for admission her "personal adversaries." Remains blunted and responding to internal stimuli Objective Alert: Yes [place]: Person Mood: Oppositional Affect: Blunted Memory Intact: Comment (unable to test) Hallucinations: Auditory (denies today but responding) Delusions: Yes Delusion Type: Paranoid (being watched) Suicidal: Ideation (deneis ) Homicidal: Ideation (deneis) Insight/Judgment Poor Vitals/IOs Vital Signs Date Time Temp Pulse Resp B/P Pulse Ox O2 Delivery O2 Flow Rate FiO2 05/26/17 09:00 80 164/80 05/26/17 05:34 98.2 18 100 Assessment & Plan Problem List: (1) Schizophrenia ICD Code: F20.9 Assessment & Plan Consult medicine for hypertension in the setting of anemia Justification for Cont. Inpt. Patient would decompensate in a less restrictive setting Request HC Surrog/Guard Advoc?: Yes Problem Qualifiers (1) Schizophrenia: Qualified Code: F20.3 - Undifferentiated schizophrenia Gene Wheeler DO May 26, 2017 14:13
[2017-05-26] MEDS ORDERED: cloNIDine HCL 0.1 MG TAB PO PRN (16:00)
[2017-05-26 17:00] VITALS: BP 193/106; PULSE 74; RESP 18; TEMP 98.5; O2SAT 100
--- NOTE | 2017-05-26 17:16 | HHI.PR ---
Subjective Remarks Reconsulted for HTN Patient states her bp readings have been elevated Denies cp/sob denies headache or dizziness BP noted persistently elevated since 05/24 with SBP up to 174/97 Objective Vitals Vital Signs Date Time Temp Pulse Resp B/P Pulse Ox O2 Delivery O2 Flow Rate FiO2 05/26/17 09:00 80 164/80 05/26/17 05:34 98.2 67 18 171/98 100 05/25/17 20:30 98.5 80 16 174/97 99 Objective Remarks AAOX3 NAD Pale conjunctiva S1S2 RRR, no MRG Clear lungs BL no edema in extremities Medications and IVs Current Medications Medications (Trade) Dose Ordered Sig/Soy Route Start Time Stop Time Status Last Admin (Tylenol) 650 mg Q4H PRN PO 05/19/17 13:00 (Milk Of Magnesia Liq) 30 ml DAILY PRN PO 05/19/17 13:00 (Mag-Al Plus Susp Liq) 30 ml Q6H PRN PO 05/19/17 13:00 (ZyPREXA) 10 mg Q12HR PO 05/20/17 14:00 05/26/17 08:22 (ZyPREXA INJ) 10 mg Q12H PRN IM 05/20/17 13:45 (Ferrous Sulfate) 325 mg BID@,17 PO 05/22/17 12:00 05/26/17 16:48 (Protonix) 40 mg DAILY PO 05/22/17 09:00 05/26/17 08:22 (Norvasc) 10 mg DAILY PO 05/26/17 16:00 05/26/17 16:48 (Catapres) 0.1 mg Q6H PRN PO 05/26/17 16:00 A/P Problem List: (1) Schizophrenia ICD Code: F20.9 Status: Acute Plan: Management as per psychiatry. The patient is currently on Zyprexa. (2) Microcytic anemia ICD Code: D50.9 Status: Acute Plan: Iron studies concurrent with iron deficiency anemia. Suspect 2/2 to heavy periods Pelvic us ordered however patient refused. (3) Hypokalemia ICD Code: E87.6 Status: Resolved Plan: Replaced orally, K level normal. (4) HTN (hypertension) ICD Code: I10 Status: Acute Plan: Uncontrolled, has had persistent elevated bp readings. Start the patient on 10 mg of oral amlodipine and clonidine as needed. Assessment and Plan DVT prophylaxi: on PPI Problem Qualifiers (1) Schizophrenia: Qualified Code: F20.3 - Undifferentiated schizophrenia (2) HTN (hypertension): Qualified Code: I10 - Essential hypertension Eddie Abebe MD May 26, 2017 17:16
[2017-05-26 18:27] VITALS: BP 138/80
[2017-05-26 21:55] VITALS: BP 184/95; PULSE 76
[2017-05-26 22:47] VITALS: BP 141/90
[2017-05-27 07:03] VITALS: BP 133/74; PULSE 85; RESP 16; O2SAT 100
[2017-05-27] MEDS: OLANZapine 10 MG TAB PO SCH ×2 (09:00→22:02)
[2017-05-27] MEDS: PANTOPRAZOLE SOD 40 MG DELAYED RELEASE TAB PO SCH (09:00)
[2017-05-27] MEDS: FERROUS SULFATE 325 MG (65 MG ELEMENTAL IRON) TAB PO SCH ×2 (12:00→16:39)
--- NOTE | 2017-05-27 16:00 | HHI.PYPN ---
Subjective Remarks Patient was seen and case discussed with nursing. Patient remains oppositional and psychotic. She continues to refuse diagnostic procedures for her anemia is compliant with medications including the blood pressure medication from the medical team. Affect is shy and hypoverbal. Today patient claims she has no family never has. That she was conceived in the [employer] anyway. Objective Alert: Yes [place]: Person, Place Mood: Oppositional Affect: Restricted Memory Intact: Comment (unable to test) Hallucinations: Auditory (denies today but responding) Delusions: Yes Delusion Type: Paranoid (bizarre delusions that she was conceived in the [employer] way) Suicidal: Ideation (deneis ) Homicidal: Ideation (deneis) Insight/Judgment Poor Vitals/IOs Vital Signs Date Time Temp Pulse Resp B/P (MAP) Pulse Ox O2 Delivery O2 Flow Rate FiO2 05/27/17 07:03 85 16 133/74 (93) 100 05/26/17 17:00 98.5 Assessment & Plan Problem List: (1) Schizophrenia ICD Codes: F20.9 - Schizophrenia, unspecified Status: Acute Assessment & Plan Continue current treatment plan Justification for Cont. Inpt. Patient would decompensate in a less restrictive setting Request HC Surrog/Guard Advoc?: Yes Problem Qualifiers (1) Schizophrenia: Gene Wheeler DO May 27, 2017 16:00
[2017-05-27 18:38] VITALS: BP 138/86; PULSE 86; RESP 16; TEMP 98.1; O2SAT 98
--- NOTE | 2017-05-27 20:39 | HHI.PR ---
Subjective Remarks Patient denies cp/sob denies headache, dizziness Bp much improved Objective Vitals Vital Signs Date Time Temp Pulse Resp B/P (MAP) Pulse Ox O2 Delivery O2 Flow Rate FiO2 05/27/17 18:38 98.1 86 16 138/86 (103) 98 05/27/17 07:03 85 16 133/74 (93) 100 05/26/17 22:47 141/90 (107) 05/26/17 21:55 76 184/95 (124) Objective Remarks AAOX3 NAD Pale conjunctiva S1S2 RRR, no MRG Clear lungs BL no edema in extremities Medications and IVs Current Medications Medications (Trade) Dose Ordered Sig/Soy Route Start Time Stop Time Status Last Admin (Tylenol) 650 mg Q4H PRN PO 05/19/17 13:00 (Milk Of Magnesia Liq) 30 ml DAILY PRN PO 05/19/17 13:00 (Mag-Al Plus Susp Liq) 30 ml Q6H PRN PO 05/19/17 13:00 (ZyPREXA) 10 mg Q12HR PO 05/20/17 14:00 05/27/17 09:00 (ZyPREXA INJ) 10 mg Q12H PRN IM 05/20/17 13:45 (Ferrous Sulfate) 325 mg BID@,17 PO 05/22/17 12:00 05/27/17 16:39 (Protonix) 40 mg DAILY PO 05/22/17 09:00 05/27/17 09:00 (Norvasc) 10 mg DAILY PO 05/26/17 16:00 05/27/17 09:00 (Catapres) 0.1 mg Q6H PRN PO 05/26/17 16:00 05/26/17 22:01 Urinary Catheter: No Vascular Central Line Catheter: No A/P Problem List: (1) Schizophrenia ICD Code: F20.9 - Schizophrenia, unspecified Status: Acute Plan: Management as per psychiatry. The patient is currently on Zyprexa. (2) Microcytic anemia ICD Code: D50.9 - Iron deficiency anemia, unspecified Status: Acute Plan: Iron studies concurrent with iron deficiency anemia. Suspect 2/2 to heavy periods Pelvic us ordered however patient refused. (3) Hypokalemia ICD Code: E87.6 - Hypokalemia Status: Resolved Plan: Replaced orally, K level normal. (4) HTN (hypertension) ICD Code: I10 - Essential (primary) hypertension Status: Acute Plan: Uncontrolled, has had persistent elevated bp readings. Start the patient on 10 mg of oral amlodipine and clonidine as needed. 8/20 bp better, continue amlodipine as above. Assessment and Plan DVT prophylaxi: on PPI Problem Qualifiers (1) Schizophrenia: (2) HTN (hypertension): Eddie Abebe MD May 27, 2017 20:39
[2017-05-28] MEDS: OLANZapine 10 MG TAB PO SCH ×2 (08:48→21:11)
[2017-05-28] MEDS: PANTOPRAZOLE SOD 40 MG DELAYED RELEASE TAB PO SCH (08:49)
[2017-05-28] MEDS: FERROUS SULFATE 325 MG (65 MG ELEMENTAL IRON) TAB PO SCH ×2 (11:16→16:04)
--- NOTE | 2017-05-28 16:56 | HHI.PYPN ---
Subjective Remarks Patient seen in dayroom refusing to talk to me angry irritable demanding. I also discussed patient with nursing staff she has refused all labs refusing all medication she continues to bleed vaginally. Her vital signs though of been somewhat labile. I feel is medically necessary to protect this morning from becoming catastrophically ill to get appropriate labs and imaging done thus I will order patient may be physically held and restraint to get labs and to get the pelvic ultrasound done Review of Systems Except as stated in HPI: all other systems reviewed are Neg Objective Alert: Yes [place]: Person, Place Mood: Oppositional Affect: Restricted Memory Intact: Comment (unable to test) Hallucinations: Auditory (denies today but responding) Delusions: Yes Delusion Type: Paranoid (bizarre delusions that she was conceived in the godly way) Suicidal: Ideation (deneis ) Homicidal: Ideation (deneis) Insight/Judgment Very poor Vitals/IOs Vital Signs Date Time Temp Pulse Resp B/P (MAP) Pulse Ox O2 Delivery O2 Flow Rate FiO2 05/27/17 18:38 98.1 86 16 138/86 (103) 98 Assessment & Plan Problem List: (1) Paranoid type schizophrenia, chronic state with acute exacerbation ICD Codes: F20.0 - Paranoid schizophrenia Assessment & Plan Estimated LOS: days patient continues quite psychotic with no insight. I have ordered that she may be held down and restrained for labs and for imaging such as a pelvic ultrasound Justification for Cont. Inpt. At this time patient will decompensate if placed in a lower level of care Discharge Planning To be determined Request HC Surrog/Guard Advoc?: Yes Kevon Joseph MD May 28, 2017 16:56
[2017-05-28 19:58] VITALS: BP 138/76; PULSE 72; RESP 17; TEMP 99.1; O2SAT 100
--- NOTE | 2017-05-28 22:17 | HHI.PR ---
Subjective Remarks Deferred entry - patient seen at 5 pm Patient denies cp/sob denies dizziness, headache stable bp Objective Vitals Vital Signs Date Time Temp Pulse Resp B/P (MAP) Pulse Ox O2 Delivery O2 Flow Rate FiO2 05/28/17 19:58 99.1 72 17 138/76 (96) 100 Objective Remarks AAOX3 NAD Pale conjunctiva S1S2 RRR, no MRG Clear lungs BL no edema in extremities Medications and IVs Current Medications Medications (Trade) Dose Ordered Sig/Soy Route Start Time Stop Time Status Last Admin (Tylenol) 650 mg Q4H PRN PO 05/19/17 13:00 (Milk Of Magnesia Liq) 30 ml DAILY PRN PO 05/19/17 13:00 (Mag-Al Plus Susp Liq) 30 ml Q6H PRN PO 05/19/17 13:00 (ZyPREXA) 10 mg Q12HR PO 05/20/17 14:00 05/28/17 21:11 (ZyPREXA INJ) 10 mg Q12H PRN IM 05/20/17 13:45 (Ferrous Sulfate) 325 mg BID@12,17 PO 05/22/17 12:00 05/28/17 16:04 (Protonix) 40 mg DAILY PO 05/22/17 09:00 05/28/17 08:49 (Norvasc) 10 mg DAILY PO 05/26/17 16:00 05/28/17 08:49 (Catapres) 0.1 mg Q6H PRN PO 05/26/17 16:00 05/26/17 22:01 A/P Problem List: (1) Schizophrenia ICD Code: F20.9 - Schizophrenia, unspecified Status: Acute Plan: Management as per psychiatry. The patient is currently on Zyprexa. (2) Microcytic anemia ICD Code: D50.9 - Iron deficiency anemia, unspecified Status: Acute Plan: Iron studies concurrent with iron deficiency anemia. Suspect 2/2 to heavy periods Pelvic us ordered however patient refused. 05/28 discussed the case with Dr Joseph - Patient will be able to be physically held down and restrained for this test. Patient will also be restrained for fu labs. Continue ferrous sulfate. (3) Hypokalemia ICD Code: E87.6 - Hypokalemia Status: Resolved Plan: Replaced orally, K level normal. (4) HTN (hypertension) ICD Code: I10 - Essential (primary) hypertension Status: Acute Plan: Uncontrolled, has had persistent elevated bp readings. Start the patient on 10 mg of oral amlodipine and clonidine as needed. 8/20 bp better, continue amlodipine as above. Assessment and Plan DVT prophylaxi: on PPI Problem Qualifiers (1) Schizophrenia: (2) HTN (hypertension): Eddie Abebe MD May 28, 2017 22:17
[2017-05-29 06:08] VITALS: BP 142/84; PULSE 80; RESP 17; TEMP 97.7; O2SAT 100
[2017-05-29] MEDS: OLANZapine 10 MG TAB PO SCH ×2 (09:00→20:43)
[2017-05-29] MEDS: PANTOPRAZOLE SOD 40 MG DELAYED RELEASE TAB PO SCH (09:19)
[2017-05-29] MEDS: FERROUS SULFATE 325 MG (65 MG ELEMENTAL IRON) TAB PO SCH ×2 (12:30→17:00)
--- NOTE | 2017-05-29 15:24 | HHI.PYPN ---
Subjective Remarks Patient seen in day room with nurse Marysol and counselor Christie, chart reviewed. We will be given permission by the guardian advocate to restrain patient to get medically necessary labs and testing. I again attempted to discuss this with the patient she became angry denying and saying that she has a supernatural that will protect her Review of Systems Except as stated in HPI: all other systems reviewed are Neg Objective Alert: Yes [place]: Person, Place Mood: Oppositional Affect: Restricted Memory Intact: Comment (unable to test) Hallucinations: Auditory (denies today but responding) Delusions: Yes Delusion Type: Paranoid (bizarre delusions that she was conceived in the godly way) Suicidal: Ideation (deneis ) Homicidal: Ideation (deneis) Insight/Judgment Very poor Vitals/IOs Vital Signs Date Time Temp Pulse Resp B/P (MAP) Pulse Ox O2 Delivery O2 Flow Rate FiO2 05/29/17 06:08 97.7 80 17 142/84 (103) 100 Assessment & Plan Problem List: (1) Paranoid type schizophrenia, chronic state with acute exacerbation ICD Codes: F20.0 - Paranoid schizophrenia Assessment & Plan Estimated LOS: days patient continues psychotic delusional paranoid. Labs about auditory this afternoon, CBC with differential and a CMP and also pelvic ultrasound to be done. Patient may be restrained to do this is medically necessary. Patient also given 1 mg Ativan IM to help her relax Justification for Cont. Inpt. At this time patient will decompensate with placed a lower level of care Discharge Planning To be determined Request HC Surrog/Guard Advoc?: Yes Kevon Joseph MD May 29, 2017 15:24
[2017-05-29] MEDS ORDERED: LORazepam 2 MG/ML VIAL IM ONE (16:00)
[2017-05-29 16:37] LABS: AUTOMATED NEUTROPHIL # 4.6 TH/MM3 (1.8-7.7); BASOPHIL % 0.4 % (0.0-2.0); EOSINOPHIL % 0.5 % (0.0-4.0); HEMATOCRIT 26.1 % (35.0-46.0); HEMO FLAGS DIFF FINAL; LYMPHOCYTE # 2.3 TH/MM3 (1.0-4.8); MEAN CELL VOLUME 75.6 FL (80.0-100.0); MEAN CORPUSCULAR HGB CONC 31.7 % (32.0-36.0); MONO % 8.9 % (0.0-8.0); NEUT % 60.2 % (16.0-70.0); PLATELET COUNT 530 TH/MM3 (150-450); RED BLOOD COUNT 3.45 MIL/MM3 (4.00-5.30); WHITE BLOOD COUNT 7.7 TH/MM3 (4.0-11.0)
--- NOTE | 2017-05-29 16:43 | RADRPT ---
EXAM DATE/TIME: 05/29/2017 15:57 [facility] COMPARISON: No previous studies available for comparison. INDICATIONS : Bleeding. MEDICAL HISTORY : Hypertension. Anemia. Schizophrenia. Violent behavior. SURGICAL HISTORY : None. ENCOUNTER: Initial ACUITY: 1 day PAIN SCORE: Nonresponsive. LOCATION: Bilateral pelvis MEASUREMENTS: UTERUS: 8.2 x 4.7 x 4.5 cm ENDOMETRIAL STRIPE: 9 mm RIGHT OVARY: 3.8 x 2.3 x 2.2 cm LEFT OVARY: 2.9 x 2.5 x 2.3 cm FINDINGS: There is a small amount of free fluid. The ovaries are normal. Endometrium measures 9.2 mm in maximal thickness. Myometrium is heterogeneous with multiple fibroids identified. The largest measures 2.7 x 1.7 x 2.1 cm at the lower uterine segment and a 10 x 14 x 9 mm hypoechoic fundal mass or bilateral f ollicular cysts are noted. There is a probable hemorrhagic cyst at the level of the left ovary measur ing 2.5cm. CONCLUSION: 1. Uterine fibroids and a small amount of free fluid. 2. Probable hemorrhagic cyst left ovary. 3. Suggest a short interval followup ultrasound in 6 weeks. Gigi Neal MD on May 29, 2017 at 16:39 Board Certified Radiologist. This report was verified electronically.
[2017-05-29 17:01] LABS: ANION GAP 14 MEQ/L (5-15); AST (GOT) 37 U/L (15-37); BLOOD UREA NITROGEN 15 MG/DL (7-18); CHLORIDE 105 MEQ/L (98-107); GLOMERULAR FILTRATION RATE 57 ML/MIN (>89); POTASSIUM 3.4 MEQ/L (3.5-5.1); SODIUM (NA) 139 MEQ/L (136-145)
[2017-05-29 17:04] LABS: ALKALINE PHOSPHATASE 60 U/L (45-117); ALT (GPT) 31 U/L (10-53); TOTAL BILIRUBIN ADULT 0.2 MG/DL (0.2-1.0)
[2017-05-30 06:06] VITALS: BP 149/74; PULSE 103; RESP 18; TEMP 98.4; O2SAT 97
[2017-05-30] MEDS: OLANZapine 10 MG TAB PO SCH ×2 (09:07→21:22)
[2017-05-30] MEDS: PANTOPRAZOLE SOD 40 MG DELAYED RELEASE TAB PO SCH (09:07)
[2017-05-30] MEDS: FERROUS SULFATE 325 MG (65 MG ELEMENTAL IRON) TAB PO SCH ×2 (10:55→16:17)
--- NOTE | 2017-05-30 13:11 | HHI.PYPN ---
Subjective Remarks Patient seen in day room with nurse Ashwin, chart review, lab and testing done yesterday shows the hemoglobin has increased to 8.3, the pelvic ultrasound shows uterine fibroids and some other minor abnormalities in the pelvis. Suggesting reexamination in about 8 weeks. Patient continues to show no insight. Is angry at me and is refuse to talk to me today" was noted to be eating lunch in the lecture without difficulty. For now continue treatment Review of Systems Except as stated in HPI: all other systems reviewed are Neg Objective Alert: Yes [place]: Person, Place Mood: Oppositional Affect: Restricted Memory Intact: Comment (unable to test) Hallucinations: Auditory (denies today but responding) Delusions: Yes Delusion Type: Paranoid (bizarre delusions that she was conceived in the godly way) Suicidal: Ideation (deneis ) Homicidal: Ideation (deneis) Insight/Judgment Very poor Labs Test 05/29/17 16:22 05/30/17 12:42 White Blood Count 7.7 TH/MM3 Red Blood Count 3.45 MIL/MM3 Hemoglobin 8.3 GM/DL Hematocrit 26.1 % Mean Corpuscular Volume 75.6 FL Mean Corpuscular Hemoglobin 24.0 PG Mean Corpuscular Hemoglobin Concent 31.7 % Red Cell Distribution Width 18.0 % Platelet Count 530 TH/MM3 Mean Platelet Volume 7.1 FL Neutrophils (%) (Auto) 60.2 % Lymphocytes (%) (Auto) 30.0 % Monocytes (%) (Auto) 8.9 % Eosinophils (%) (Auto) 0.5 % Basophils (%) (Auto) 0.4 % Neutrophils # (Auto) 4.6 TH/MM3 Lymphocytes # (Auto) 2.3 TH/MM3 Monocytes # (Auto) 0.7 TH/MM3 Eosinophils # (Auto) 0.0 TH/MM3 Basophils # (Auto) 0.0 TH/MM3 CBC Comment DIFF FINAL Differential Comment Blood Urea Nitrogen 15 MG/DL Creatinine 1.24 MG/DL Random Glucose 116 MG/DL Total Protein 8.0 GM/DL Albumin 4.2 GM/DL Calcium Level 9.0 MG/DL Alkaline Phosphatase 60 U/L Aspartate Amino Transf (AST/SGOT) 37 U/L Alanine Aminotransferase (ALT/SGPT) 31 U/L Total Bilirubin 0.2 MG/DL Sodium Level 139 MEQ/L Potassium Level 3.4 MEQ/L Chloride Level 105 MEQ/L Carbon Dioxide Level 20.0 MEQ/L Anion Gap 14 MEQ/L Estimat Glomerular Filtration Rate 57 ML/MIN Vitals/IOs Vital Signs Date Time Temp Pulse Resp B/P (MAP) Pulse Ox O2 Delivery O2 Flow Rate FiO2 05/30/17 06:06 98.4 103 18 149/74 (99) 97 Assessment & Plan Problem List: (1) Paranoid type schizophrenia, chronic state with acute exacerbation ICD Codes: F20.0 - Paranoid schizophrenia Assessment & Plan Estimated LOS: days patient continue psychotic and delusional. Her lab results are encouraging for her medical condition. For now continue treatment Justification for Cont. Inpt. At this time patient will decompensate if not placed an appropriate level of care Discharge Planning To be determined Request HC Surrog/Guard Advoc?: Yes Kevon Joseph MD May 30, 2017 13:11
[2017-05-30 13:30] LABS: BICARBONATE 20.6 MEQ/L (21.0-32.0); MAGNESIUM 2.6 MG/DL (1.5-2.5); POTASSIUM 3.8 MEQ/L (3.5-5.1)
--- NOTE | 2017-05-30 16:14 | HHI.PR ---
Subjective Remarks Follow-up visit anemia, hypokalemia, hypertension. Patient seen and examined today. Patient's behavior is very desire. Discussed with patient that her blood pressure continues to be slightly elevated but we aren't trying to manage it with medication. Patient states she doesn't have any blood pressure but she agrees to take medication. She also states that she is living alone without any parents or any ancestors that she was created just by herself. Denies pain or discomfort. Denies chest pain, palpitations. Objective Vitals Vital Signs Date Time Temp Pulse Resp B/P (MAP) Pulse Ox O2 Delivery O2 Flow Rate FiO2 05/30/17 06:06 98.4 103 18 149/74 (99) 97 Result Diagram: 05/29/17 1622 05/30/17 1242 Imaging Last Impressions Pelvis Ultrasound 05/29/17 0000 Signed Impressions: Service Date/Time: Monday, May 29, 2017 15:57 - CONCLUSION: 1. Uterine fibroids and a small amount of free fluid. 2. Probable hemorrhagic cyst left ovary. 3. Suggest a short interval followup ultrasound in 6 weeks. Gigi Neal MD Objective Remarks GENERAL: This is a well-nourished, well-developed patient, in no apparent distress. SKIN: Warm and dry. HEENT: Normocephalic. Pupils equal round and reactive. Nose without bleeding. Airway patent. NECK: Trachea midline. Supple. CARDIOVASCULAR: Regular rate and rhythm 2/6 murmurs, gallops, or rubs. RESPIRATORY: Clear to auscultation. Breath sounds equal bilaterally. No wheezes , rales, or rhonchi. GASTROINTESTINAL: Abdomen soft, non-tender, nondistended. Bowel Sounds normoactive x4. MUSCULOSKELETAL: Extremities without clubbing, cyanosis, or edema. NEUROLOGICAL: Awake and alert. Oriented to person. Moves all extremities. Normal speech. A/P Problem List: (1) Schizophrenia ICD Code: F20.9 - Schizophrenia, unspecified Status: Acute (2) Microcytic anemia ICD Code: D50.9 - Iron deficiency anemia, unspecified Status: Acute (3) Hypokalemia ICD Code: E87.6 - Hypokalemia Status: Resolved (4) HTN (hypertension) ICD Code: I10 - Essential (primary) hypertension Status: Acute Assessment and Plan Ms. Posey is 42 yo, with a reported history of hypertension and untreated x 4 years who presents to the emergency department under a [place] act. Schizophrenia - Managed by psychiatry team Hypertension - Untreated for years, patient does not believe that she has any blood pressure problems nor does she have a blood pressure - Continue amlodipine 10 mg daily, clonidine when necessary - Goal blood pressure less than 140s. Microcytic anemia - Possible heavy menstrual periods - Pelvic ultrasound showed uterine fibroids and small amount of free fluid. Probable hemorrhagic cyst left ovary. Suggest a short interval follow-up ultrasound in 6 weeks. - Patient need to follow-up with [facility] in outpatient - Iron panel low - Continue iron supplements twice a day Hypokalemia - Resolved Acute kidney injury - Possibly secondary to schizophrenia were inpatient would not eat or hydrate properly - Encourage by mouth fluids - Avoid nephrotoxins - Monitor BMP DVT Prop ambulatory, low-risk Full code Discussed with patient, nursing, Dr. Wilson Problem Qualifiers (1) Schizophrenia: (2) HTN (hypertension): Ray Marino May 30, 2017 16:14
[2017-05-30 18:00] VITALS: BP 140/92; PULSE 86; RESP 18; TEMP 98.2; O2SAT 100
[2017-05-31 06:01] VITALS: BP 140/72; PULSE 93; RESP 16; TEMP 98.3; O2SAT 100
[2017-05-31] MEDS: OLANZapine 10 MG TAB PO SCH (09:32)
[2017-05-31] MEDS: PANTOPRAZOLE SOD 40 MG DELAYED RELEASE TAB PO SCH (09:32)
[2017-05-31 09:41] LABS: HEMATOCRIT 29.4 % (35.0-46.0); MEAN CELL VOLUME 77.3 FL (80.0-100.0); MEAN CORPUSCULAR HEMOGLOBIN 24.3 PG (27.0-34.0); MEAN CORPUSCULAR HGB CONC 31.5 % (32.0-36.0); PLATELET COUNT 465 TH/MM3 (150-450); RED BLOOD COUNT 3.81 MIL/MM3 (4.00-5.30); RED CELL DISTRIBUTION WIDTH 19.2 % (11.6-17.2); REVIEW FLAG FINAL
[2017-05-31 10:07] LABS: BICARBONATE 21.6 MEQ/L (21.0-32.0); MAGNESIUM 2.7 MG/DL (1.5-2.5); POTASSIUM 3.6 MEQ/L (3.5-5.1)
--- NOTE | 2017-05-31 11:27 | HHI.PYPN ---
Subjective Remarks Patient seen in day room with nurse Pebbles. Patient continues with a markedly vigilant hospital plans towards me. She refused to answer questions related attempted to discuss with her the CBC finding on the ultrasound I. When asked if she would be willing to take the medication of the community she again shook her head no. Will decrease Zyprexa 15 mg twice a day since she has been compliant with Zyprexa for a significant period of time Review of Systems Except as stated in HPI: all other systems reviewed are Neg Objective Alert: Yes [place]: Person, Place Mood: Oppositional Affect: Restricted Memory Intact: Comment (unable to test) Hallucinations: Auditory (denies today but responding) Delusions: Yes Delusion Type: Paranoid (bizarre delusions that she was conceived in the godly way) Suicidal: Ideation (deneis ) Homicidal: Ideation (deneis) Insight/Judgment Very poor Labs Test 05/30/17 12:42 05/31/17 08:20 Blood Urea Nitrogen 14 MG/DL 17 MG/DL Creatinine 1.07 MG/DL 1.07 MG/DL Random Glucose 93 MG/DL 71 MG/DL Calcium Level 8.5 MG/DL 8.5 MG/DL Magnesium Level 2.6 MG/DL 2.7 MG/DL Sodium Level 136 MEQ/L 138 MEQ/L Potassium Level 3.8 MEQ/L 3.6 MEQ/L Chloride Level 105 MEQ/L 107 MEQ/L Carbon Dioxide Level 20.6 MEQ/L 21.6 MEQ/L Anion Gap 10 MEQ/L 9 MEQ/L Estimat Glomerular Filtration Rate 67 ML/MIN 67 ML/MIN White Blood Count 6.0 TH/MM3 Red Blood Count 3.81 MIL/MM3 Hemoglobin 9.3 GM/DL Hematocrit 29.4 % Mean Corpuscular Volume 77.3 FL Mean Corpuscular Hemoglobin 24.3 PG Mean Corpuscular Hemoglobin Concent 31.5 % Red Cell Distribution Width 19.2 % Platelet Count 465 TH/MM3 Mean Platelet Volume 7.9 FL Vitals/IOs Vital Signs Date Time Temp Pulse Resp B/P (MAP) Pulse Ox O2 Delivery O2 Flow Rate FiO2 05/31/17 06:01 98.3 93 16 140/72 (94) 100 Assessment & Plan Problem List: (1) Paranoid type schizophrenia, chronic state with acute exacerbation ICD Codes: F20.0 - Paranoid schizophrenia Assessment & Plan Estimated LOS: days patient continues vigilant paranoid and psychotic, showing no insight into her issues, continues to deny willingness to follow-up with outpatient medication and treatment. She medication adjustment above Justification for Cont. Inpt. At this time patient will decompensate if placed in a lower level of care Discharge Planning To be determined Request HC Surrog/Guard Advoc?: Yes Kevon Joseph MD May 31, 2017 11:27
[2017-05-31] MEDS: FERROUS SULFATE 325 MG (65 MG ELEMENTAL IRON) TAB PO SCH ×2 (13:42→18:47)
[2017-05-31 18:54] VITALS: BP 153/81; PULSE 86; RESP 18; TEMP 98.9; O2SAT 100
[2017-06-01 05:50] VITALS: BP 142/81; PULSE 87; RESP 16; TEMP 98.3; O2SAT 100
[2017-06-01] MEDS: HYDROCHLOROTHIAZIDE 12.5 MG CAP PO SCH ×2 (08:53→08:55)
[2017-06-01] MEDS: PANTOPRAZOLE SOD 40 MG DELAYED RELEASE TAB PO SCH (08:55)
[2017-06-01] MEDS: FERROUS SULFATE 325 MG (65 MG ELEMENTAL IRON) TAB PO SCH ×2 (12:10→17:00)
--- NOTE | 2017-06-01 15:59 | HHI.PYPN ---
Subjective Remarks Patient seen in her room with nurse Pebbles, chart reviewed, patient compliant medicine. Patient try some slight increase in affect, good eye contact, more verbal cooperative and pleasant with me. She states she lives by herself, has lived by herself her long time and is accepting of it. Today she states her taking medication in the community after she is discharged. For now continue treatment consider discharge first part next week if this improvement continues Review of Systems Except as stated in HPI: all other systems reviewed are Neg Objective Alert: Yes [place]: Person, Place Mood: Oppositional Affect: Restricted Memory Intact: Comment (unable to test) Hallucinations: Auditory (denies today but responding) Delusions: Yes Delusion Type: Paranoid (bizarre delusions that she was conceived in the godly way) Suicidal: Ideation (deneis ) Homicidal: Ideation (deneis) Insight/Judgment Poor Vitals/IOs Vital Signs Date Time Temp Pulse Resp B/P (MAP) Pulse Ox O2 Delivery O2 Flow Rate FiO2 06/01/17 05:50 98.3 87 16 142/81 (101) 100 Assessment & Plan Problem List: (1) Paranoid type schizophrenia, chronic state with acute exacerbation ICD Codes: F20.0 - Paranoid schizophrenia Assessment & Plan Estimated LOS: days patient showing marked improvement in her affect intercommunication with me. This less vigilance and paranoia. Compliant medications Justification for Cont. Inpt. At this time patient will decompensate if placed in the lower level of care Discharge Planning To be determined Request HC Surrog/Guard Advoc?: Yes Kevon Joseph MD Jun 01, 2017 15:59
[2017-06-01 17:57] VITALS: BP 173/85; PULSE 103; RESP 16; TEMP 98.6; O2SAT 100
[2017-06-02 06:14] VITALS: BP 130/81; PULSE 100; RESP 16; TEMP 97.4; O2SAT 95
[2017-06-02] MEDS: PANTOPRAZOLE SOD 40 MG DELAYED RELEASE TAB PO SCH (09:27)
[2017-06-02] MEDS: HYDROCHLOROTHIAZIDE 12.5 MG CAP PO SCH (09:28)
[2017-06-02] MEDS: FERROUS SULFATE 325 MG (65 MG ELEMENTAL IRON) TAB PO SCH ×2 (11:54→16:48)
--- NOTE | 2017-06-02 13:49 | HHI.PYPN ---
Subjective Remarks Pt seen and discussed with staff. She remains guarded and paranoid. Suspicious and guarded with peers. She is compliant with medications and tolerating without side effects.No SI/HI . She reports mood is "fine". Objective Alert: Yes [place]: Person, Place Mood: Calm Affect: Restricted Memory Intact: Comment (no gross deficits) Hallucinations: Other (denies) Delusions: Yes Delusion Type: Paranoid (bizarre delusions that she was conceived in the godly way) Suicidal: Ideation (deneis ) Homicidal: Ideation (deneis) Insight/Judgment poor Vitals/IOs Vital Signs Date Time Temp Pulse Resp B/P (MAP) Pulse Ox O2 Delivery O2 Flow Rate FiO2 06/02/17 06:14 97.4 100 16 130/81 (97) 95 Manual Cuff/Palpation Assessment & Plan Problem List: (1) Paranoid type schizophrenia, chronic state with acute exacerbation ICD Codes: F20.0 - Paranoid schizophrenia Assessment & Plan Continue current tx plan. Estimated LOS: days Justification for Cont. Inpt. impairments in reality testing Request HC Surrog/Guard Advoc?: Yes Rafia Gloria MD Jun 02, 2017 13:49
--- NOTE | 2017-06-02 14:14 | HHI.PR ---
Subjective Remarks Follow-up visit anemia, hypokalemia, hypertension. Patient seen and examined today. Patient's behavior has improved from being bizarre. States she is doing well. Denies pain and discomfort. Denies SOB/ dyspnea. Denies chest pain , palpitations, headaches, dizziness. Denies fevers, chills, n/v/d. Objective Vitals Vital Signs Date Time Temp Pulse Resp B/P (MAP) Pulse Ox O2 Delivery O2 Flow Rate FiO2 06/02/17 06:14 97.4 100 16 130/81 (97) 95 Manual Cuff/Palpation 06/01/17 17:57 98.6 103 16 173/85 (114) 100 I/O 06/01/17 06/01/17 06/01/17 06/02/17 06/02/17 06/02/17 07:00 15:00 23:00 07:00 15:00 23:00 Intake Total 240 ml Balance 240 ml Intake Oral 240 ml Result Diagram: 05/31/17 0820 05/31/17 0820 Imaging Last Impressions Pelvis Ultrasound 05/29/17 0000 Signed Impressions: Service Date/Time: Monday, May 29, 2017 15:57 - CONCLUSION: 1. Uterine fibroids and a small amount of free fluid. 2. Probable hemorrhagic cyst left ovary. 3. Suggest a short interval followup ultrasound in 6 weeks. Gigi Neal MD Objective Remarks GENERAL: This is a well-nourished, well-developed patient, in no apparent distress. SKIN: Warm and dry. HEENT: Normocephalic. Pupils equal round and reactive. Nose without bleeding. Airway patent. NECK: Trachea midline. Supple. CARDIOVASCULAR: Tachycardia and rhythm 2/6 murmurs, gallops, or rubs. RESPIRATORY: Clear to auscultation. Breath sounds equal bilaterally. No wheezes , rales, or rhonchi. GASTROINTESTINAL: Abdomen soft, non-tender, nondistended. Bowel Sounds normoactive x4. MUSCULOSKELETAL: Extremities without clubbing, cyanosis, or edema. NEUROLOGICAL: Awake and alert. Oriented to person, place. Moves all extremities. Normal speech. A/P Problem List: (1) Schizophrenia ICD Code: F20.9 - Schizophrenia, unspecified Status: Acute (2) Microcytic anemia ICD Code: D50.9 - Iron deficiency anemia, unspecified Status: Acute (3) Hypokalemia ICD Code: E87.6 - Hypokalemia Status: Resolved (4) HTN (hypertension) ICD Code: I10 - Essential (primary) hypertension Status: Acute Assessment and Plan Ms. Posey is 42 yo, with a reported history of hypertension and untreated x 4 years who presents to the emergency department under a [place] act. Schizophrenia - Managed by psychiatry team Hypertension - Untreated for years, patient does not believe that she has any blood pressure problems nor does she have a blood pressure - Continue amlodipine 10 mg daily, clonidine when necessary - Goal blood pressure less than 140s. - Patient was started on hydrochlorothiazide and has some improvement on her BP. We will reconsider since she has some episodes of hypokalemia prior. Patient also with tachycardia - Start metoprolol 25 mg twice a day. DC hydrochlorothiazide Microcytic anemia - Possible heavy menstrual periods - Pelvic ultrasound showed uterine fibroids and small amount of free fluid. Probable hemorrhagic cyst left ovary. Suggest a short interval follow-up ultrasound in 6 weeks. - Patient need to follow-up with [facility] in outpatient - Iron panel low - Continue iron supplements twice a day Hypokalemia - Resolved Acute kidney injury - Possibly secondary to schizophrenia were inpatient would not eat or hydrate properly - Encourage by mouth fluids - Avoid nephrotoxins - Monitor BMP DVT Prop ambulatory, low-risk Full code Discussed with patient, nursing, Dr. Wilson If improved with metoprolol and BMP comes back within normal we will sign off. Reconsult as needed. Problem Qualifiers (1) Schizophrenia: (2) HTN (hypertension): Ray Marino Jun 02, 2017 14:14
[2017-06-02 14:33] LABS: HEMATOCRIT 29.8 % (35.0-46.0); MEAN CELL VOLUME 76.9 FL (80.0-100.0); MEAN CORPUSCULAR HEMOGLOBIN 23.7 PG (27.0-34.0); MEAN CORPUSCULAR HGB CONC 30.8 % (32.0-36.0); PLATELET COUNT 409 TH/MM3 (150-450); RED BLOOD COUNT 3.87 MIL/MM3 (4.00-5.30); RED CELL DISTRIBUTION WIDTH 20.3 % (11.6-17.2); REVIEW FLAG FINAL; WHITE BLOOD COUNT 8.9 TH/MM3 (4.0-11.0)
[2017-06-02 15:02] LABS: BICARBONATE 27.2 MEQ/L (21.0-32.0); POTASSIUM 3.5 MEQ/L (3.5-5.1)
[2017-06-02 17:58] VITALS: BP 149/89; PULSE 109; RESP 18; TEMP 99.4; O2SAT 96
[2017-06-02] MEDS: METOPROLOL TARTRATE 25 MG TAB PO SCH (21:00)
[2017-06-03 05:30] VITALS: BP 123/79; PULSE 102; RESP 17; TEMP 97.9; O2SAT 100
[2017-06-03] MEDS: PANTOPRAZOLE SOD 40 MG DELAYED RELEASE TAB PO SCH (08:45)
[2017-06-03] MEDS: METOPROLOL TARTRATE 25 MG TAB PO SCH ×2 (08:45→22:22)
[2017-06-03] MEDS: FERROUS SULFATE 325 MG (65 MG ELEMENTAL IRON) TAB PO SCH ×2 (11:58→17:36)
[2017-06-03 16:27] VITALS: BP 120/83; PULSE 98; RESP 18; TEMP 98.6; O2SAT 100
--- NOTE | 2017-06-03 16:58 | HHI.PYPN ---
Subjective Remarks Pt seen and discussed with staff. She has been pleasant and cooperative. She is compliant with medications. She has been quiet and withdrawn on unit, but no behavioral problems. Less paranoid today. Objective Alert: Yes [place]: Person, Place, Date Mood: Calm Affect: Restricted Memory Intact: Comment (no gross deficits) Hallucinations: Other (denies) Delusions: Yes Delusion Type: Paranoid (decreased) Suicidal: Ideation (deneis ) Homicidal: Ideation (deneis) Insight/Judgment poor Vitals/IOs Vital Signs Date Time Temp Pulse Resp B/P (MAP) Pulse Ox O2 Delivery O2 Flow Rate FiO2 06/03/17 16:27 98.6 98 18 120/83 (95) 100 Assessment & Plan Problem List: (1) Paranoid type schizophrenia, chronic state with acute exacerbation ICD Codes: F20.0 - Paranoid schizophrenia Assessment & Plan Continue current tx plan. Estimated LOS: days Justification for Cont. Inpt. risk of decompensation Request HC Surrog/Guard Advoc?: Yes Rafia Gloria MD Jun 03, 2017 16:58
[2017-06-04 06:10] VITALS: BP 132/74; PULSE 98; RESP 17; TEMP 97.9; O2SAT 98
[2017-06-04] MEDS: PANTOPRAZOLE SOD 40 MG DELAYED RELEASE TAB PO SCH (09:04)
[2017-06-04] MEDS: METOPROLOL TARTRATE 25 MG TAB PO SCH ×2 (09:04→22:04)
[2017-06-04] MEDS: FERROUS SULFATE 325 MG (65 MG ELEMENTAL IRON) TAB PO SCH ×2 (12:09→17:53)
--- NOTE | 2017-06-04 15:26 | HHI.PYPN ---
Subjective Remarks Patient seen in her room with nurse Matthew, chart reviewed, patient compliant medications. Patient is, pleasant with me with slightly improved affect. While she still shows marked thought blocking as of responding to internal stimuli though she denies voices. For now continue treatment Review of Systems Except as stated in HPI: all other systems reviewed are Neg Objective Alert: Yes [place]: Person, Place, Date Mood: Calm Affect: Restricted Memory Intact: Comment (no gross deficits) Hallucinations: Other (denies) Delusions: Yes Delusion Type: Paranoid (decreased) Suicidal: Ideation (deneis ) Homicidal: Ideation (deneis) Insight/Judgment Very poor Vitals/IOs Vital Signs Date Time Temp Pulse Resp B/P (MAP) Pulse Ox O2 Delivery O2 Flow Rate FiO2 06/04/17 06:10 97.9 98 17 132/74 (93) 98 Assessment & Plan Problem List: (1) Paranoid type schizophrenia, chronic state with acute exacerbation ICD Codes: F20.0 - Paranoid schizophrenia Assessment & Plan Estimated LOS: days patient calmer less signs of paranoia and vigilance and irritability with me. Though still with marked thought blocking and psychosis Justification for Cont. Inpt. At this time patient decompensate if placed in a lower level of care Discharge Planning To be determined Request HC Surrog/Guard Advoc?: Yes Kevon Joseph MD Jun 04, 2017 15:26
[2017-06-04 17:14] VITALS: BP 130/75; PULSE 76; RESP 18; TEMP 98.1
[2017-06-05 06:30] VITALS: BP 129/78; PULSE 84; RESP 16; TEMP 98.2; O2SAT 100
--- NOTE | 2017-06-05 08:13 | HHI.PR ---
Subjective Remarks Blood pressures reviewed and stable with metoprolol changes. BMP reviewed and stable. Patient medically stable at this point will sign off. Reconsult if needed. Objective Vitals Vital Signs Date Time Temp Pulse Resp B/P (MAP) Pulse Ox O2 Delivery O2 Flow Rate FiO2 06/05/17 06:30 98.2 84 16 129/78 (95) 100 06/04/17 17:14 98.1 76 18 130/75 (93) Result Diagram: 06/02/17 1403 06/02/17 1403 A/P Problem List: (1) Schizophrenia ICD Code: F20.9 - Schizophrenia, unspecified Status: Acute (2) Microcytic anemia ICD Code: D50.9 - Iron deficiency anemia, unspecified Status: Acute (3) Hypokalemia ICD Code: E87.6 - Hypokalemia Status: Resolved (4) HTN (hypertension) ICD Code: I10 - Essential (primary) hypertension Status: Acute Problem Qualifiers (1) Schizophrenia: (2) HTN (hypertension): An Ritchie Jun 05, 2017 08:13
[2017-06-05] MEDS: PANTOPRAZOLE SOD 40 MG DELAYED RELEASE TAB PO SCH (09:24)
[2017-06-05] MEDS: METOPROLOL TARTRATE 25 MG TAB PO SCH ×2 (09:24→21:39)
[2017-06-05] MEDS: FERROUS SULFATE 325 MG (65 MG ELEMENTAL IRON) TAB PO SCH ×2 (12:12→17:00)
--- NOTE | 2017-06-05 15:54 | HHI.PYPN ---
Subjective Remarks Patient seen in day room with floor staff. Patient remains calm pleasant with me with good eye contact she is verbal, but occasional small smile those still some decreased range intensity of her affect. At times appears to be thought blocking though she denies voices. She denies suicidality homicidality. Continues to state that she will be compliant with medications the community along with psychiatric follow-up. She states she does have her own place to go to. Patient continues consistent like this consider discharge in 1-2 days Review of Systems Except as stated in HPI: all other systems reviewed are Neg Objective Alert: Yes [place]: Person, Place, Date Mood: Calm Affect: Restricted Memory Intact: Comment (no gross deficits) Hallucinations: Other (denies) Delusions: Yes Delusion Type: Paranoid (decreased) Suicidal: Ideation (deneis ) Homicidal: Ideation (deneis) Insight/Judgment Poor Vitals/IOs Vital Signs Date Time Temp Pulse Resp B/P (MAP) Pulse Ox O2 Delivery O2 Flow Rate FiO2 06/05/17 06:30 98.2 84 16 129/78 (95) 100 Assessment & Plan Problem List: (1) Paranoid type schizophrenia, chronic state with acute exacerbation ICD Codes: F20.0 - Paranoid schizophrenia Assessment & Plan Estimated LOS: days patient continues with thought blocking implying continued auditory hallucinations. Though she done by his them. Her behavior is good. Denying suicidality homicidality voices or visions. Patient continues doing well consider discharge 1-2 days Justification for Cont. Inpt. Need further consistency and patient's behavior Discharge Planning To be determined Request HC Surrog/Guard Advoc?: Yes Kevon Joseph MD Jun 05, 2017 15:54
[2017-06-05 18:17] VITALS: BP 159/85; PULSE 88; RESP 17; TEMP 97.7; O2SAT 100
[2017-06-06 07:03] VITALS: BP 129/78; PULSE 81; RESP 16; TEMP 98.9; O2SAT 100
[2017-06-06] MEDS: PANTOPRAZOLE SOD 40 MG DELAYED RELEASE TAB PO SCH (09:04)
[2017-06-06] MEDS: METOPROLOL TARTRATE 25 MG TAB PO SCH ×2 (09:04→21:32)
[2017-06-06] MEDS: FERROUS SULFATE 325 MG (65 MG ELEMENTAL IRON) TAB PO SCH ×2 (11:57→17:00)
--- NOTE | 2017-06-06 15:21 | HHI.PYPN ---
Subjective Remarks Patient seen in activities room with nurse Pebbles, chart review, patient compliant medications. Patient is wishing to be discharged however when asked where she would be living she states she [place] live at the edges [place] she has been evicted from prior to this admission she still shows some significant thought blocking also. For now need to discuss with counselor placement issues with this woman who would otherwise be discharged from here homeless Review of Systems Except as stated in HPI: all other systems reviewed are Neg Objective Alert: Yes [place]: Person, Place, Date Mood: Calm Affect: Restricted Memory Intact: Comment (no gross deficits) Hallucinations: Other (denies) Delusions: Yes Delusion Type: Paranoid (decreased) Suicidal: Ideation (deneis ) Homicidal: Ideation (deneis) Insight/Judgment Very poor Vitals/IOs Vital Signs Date Time Temp Pulse Resp B/P (MAP) Pulse Ox O2 Delivery O2 Flow Rate FiO2 06/06/17 07:03 98.9 81 16 129/78 (95) 100 Intake and Output 06/06/17 06/06/17 06/07/17 08:00 16:00 00:00 Intake Total 240 ml Balance 240 ml Assessment & Plan Problem List: (1) Paranoid type schizophrenia, chronic state with acute exacerbation ICD Codes: F20.0 - Paranoid schizophrenia Assessment & Plan Estimated LOS: days patient continues with thought blocking, though she denies voices. Placement may become somewhat problematic since she feels she can go back to the edges where she was evicted prior to this hospitalization Justification for Cont. Inpt. At this time patient would severely decompensate if placed in a lower level of care Discharge Planning To be determined Request HC Surrog/Guard Advoc?: Yes Kevon Joseph MD Jun 06, 2017 15:21
[2017-06-06 18:39] VITALS: BP 120/54; PULSE 63; RESP 17; TEMP 97.4; O2SAT 98
[2017-06-07 06:11] VITALS: BP 139/88; PULSE 96; RESP 18; TEMP 97.5; O2SAT 100
[2017-06-07] MEDS: PANTOPRAZOLE SOD 40 MG DELAYED RELEASE TAB PO SCH (09:00)
[2017-06-07] MEDS: METOPROLOL TARTRATE 25 MG TAB PO SCH ×2 (09:00→22:05)
--- NOTE | 2017-06-07 10:49 | HHI.PYPN ---
Subjective Remarks Patient seen and activities room with nurse Calista, chart review, patient continues calm and pleasant with us though this confusion related to possible placement issues. She states she has no family or friends locally that could possibly be a resource for her. It appears it may need to be the [facility] though she is stating marked trepidation with that possibility. We'll need to further check with her resources with the counselor to explore other alternatives Review of Systems Except as stated in HPI: all other systems reviewed are Neg Objective Alert: Yes [place]: Person, Place, Date Mood: Calm Affect: Restricted Memory Intact: Comment (no gross deficits) Hallucinations: Other (denies) Delusions: Yes Delusion Type: Paranoid (decreased) Suicidal: Ideation (deneis ) Homicidal: Ideation (deneis) Insight/Judgment Poor Vitals/IOs Vital Signs Date Time Temp Pulse Resp B/P (MAP) Pulse Ox O2 Delivery O2 Flow Rate FiO2 06/07/17 06:11 97.5 96 18 139/88 (105) 100 Intake and Output 06/07/17 06/07/17 06/08/17 08:00 16:00 00:00 Intake Total 240 ml Balance 240 ml Assessment & Plan Problem List: (1) Paranoid type schizophrenia, chronic state with acute exacerbation ICD Codes: F20.0 - Paranoid schizophrenia Assessment & Plan Estimated LOS: days patient continues to appear to be responding to internal stimuli. There is still thought blocking though to somewhat less. She is starting to show some processing of placement issues Justification for Cont. Inpt. At the present time patient will decompensate then placed in an inappropriate level of care Discharge Planning To be determined Request HC Surrog/Guard Advoc?: Yes Kevon Joseph MD Jun 07, 2017 10:49
[2017-06-07] MEDS: FERROUS SULFATE 325 MG (65 MG ELEMENTAL IRON) TAB PO SCH ×2 (12:00→16:36)
[2017-06-07 18:25] VITALS: BP 171/97; PULSE 89; RESP 18; TEMP 97.8; O2SAT 100
[2017-06-08 06:15] VITALS: BP 123/80; PULSE 75; RESP 16; TEMP 97.4; O2SAT 100
[2017-06-08] MEDS: METOPROLOL TARTRATE 25 MG TAB PO SCH ×2 (08:55→21:43)
[2017-06-08] MEDS: PANTOPRAZOLE SOD 40 MG DELAYED RELEASE TAB PO SCH (08:56)
--- NOTE | 2017-06-08 09:21 | HHI.PYPN ---
Subjective Remarks Patient seen in [place] of floor staff, chart review, patient compliant medication. Patient showing some processing of placement issues. She is aware of the significant risks to her safety and ability to survive if she leaves with referral to the [facility]. We did discuss possible [facility] placement. Appears she is willing to consider that. She is to have some significant thought blocking though somewhat less than prior. For now continue treatment no change was work with patient with counselor to discuss placement options Review of Systems Except as stated in HPI: all other systems reviewed are Neg Objective Alert: Yes [place]: Person, Place, Date Mood: Calm Affect: Restricted Memory Intact: Comment (no gross deficits) Hallucinations: Other (denies) Delusions: Yes Delusion Type: Paranoid (decreased) Suicidal: Ideation (deneis ) Homicidal: Ideation (deneis) Insight/Judgment Poor Vitals/IOs Vital Signs Date Time Temp Pulse Resp B/P (MAP) Pulse Ox O2 Delivery O2 Flow Rate FiO2 06/08/17 06:15 97.4 75 16 123/80 (94) 100 Assessment & Plan Problem List: (1) Paranoid type schizophrenia, chronic state with acute exacerbation ICD Codes: F20.0 - Paranoid schizophrenia Assessment & Plan Estimated LOS: days patient psychosis of thought blocking or softening. She showing some small amount of processing related to problems with placement issues Justification for Cont. Inpt. At this time patient will decompensate if not placed in an appropriate level of care Discharge Planning To be determined Request HC Surrog/Guard Advoc?: Yes Kevon Joseph MD Jun 08, 2017 09:21
[2017-06-08] MEDS: FERROUS SULFATE 325 MG (65 MG ELEMENTAL IRON) TAB PO SCH ×2 (11:48→17:17)
[2017-06-08 18:19] VITALS: BP 150/84; PULSE 76; RESP 17; TEMP 97.5; O2SAT 100
[2017-06-09 06:11] VITALS: BP 137/90; PULSE 90; RESP 17; TEMP 98.9; O2SAT 100
[2017-06-09] MEDS: PANTOPRAZOLE SOD 40 MG DELAYED RELEASE TAB PO SCH (09:21)
[2017-06-09] MEDS: METOPROLOL TARTRATE 25 MG TAB PO SCH ×2 (09:21→21:22)
[2017-06-09] MEDS: FERROUS SULFATE 325 MG (65 MG ELEMENTAL IRON) TAB PO SCH ×2 (12:12→18:15)
--- NOTE | 2017-06-09 16:21 | HHI.PYPN ---
Subjective Remarks Patient was seen and case discussed with nursing. Patient remains seclusive and flat. Mood is "fine." I asked her about her delusion that she has no parents and did not have a live . She confirm this today and says she does not know how she got into the world. Compliant with her medications. She is paranoid that somebody is watching her Objective Alert: Yes [place]: Person, Place, Date Mood: Calm Affect: Flat Memory Intact: Comment (no gross deficits) Hallucinations: Other (denies) Delusions: Yes Delusion Type: Paranoid (somebody is watching her), Other (that she was not born from parents) Suicidal: Ideation (deneis ) Homicidal: Ideation (deneis) Insight/Judgment Poor Vitals/IOs Vital Signs Date Time Temp Pulse Resp B/P (MAP) Pulse Ox O2 Delivery O2 Flow Rate FiO2 06/09/17 06:11 98.9 90 17 137/90 (106) 100 Assessment & Plan Problem List: (1) Paranoid type schizophrenia, chronic state with acute exacerbation ICD Codes: F20.0 - Paranoid schizophrenia Assessment & Plan Continue current treatment plan Justification for Cont. Inpt. Patient will decompensate in a less restrictive setting Request HC Surrog/Guard Advoc?: Yes Gene Wheeler DO Jun 09, 2017 16:21
[2017-06-09 18:00] VITALS: BP 129/66; PULSE 89; RESP 17; TEMP 98.2; O2SAT 99
[2017-06-10 06:10] VITALS: BP 131/78; PULSE 75; RESP 17; TEMP 97.6; O2SAT 100
[2017-06-10] MEDS: METOPROLOL TARTRATE 25 MG TAB PO SCH ×2 (09:18→21:46)
[2017-06-10] MEDS: PANTOPRAZOLE SOD 40 MG DELAYED RELEASE TAB PO SCH (09:18)
[2017-06-10] MEDS: FERROUS SULFATE 325 MG (65 MG ELEMENTAL IRON) TAB PO SCH ×2 (12:30→17:34)
--- NOTE | 2017-06-10 14:53 | HHI.PYPN ---
Subjective Remarks Patient was seen and case discussed with nursing. Patient remains withdrawn, flat, and internally preoccupied. She says no to voices but then says she hears "messages" throughout the day. These messages are telling her that they want her to "feel the world...Curse words." Patient is compliant with medications denies suicidal or homicidal ideation intent or plan Objective Alert: Yes [place]: Person, Place, Date Mood: Calm Affect: Flat Memory Intact: Comment (no gross deficits) Hallucinations: Auditory (telling her to feel the world) Delusions: Yes Delusion Type: Paranoid (somebody is watching her), Other (that she was not born from parents) Suicidal: Ideation (deneis ) Homicidal: Ideation (deneis) Insight/Judgment Poor Vitals/IOs Vital Signs Date Time Temp Pulse Resp B/P (MAP) Pulse Ox O2 Delivery O2 Flow Rate FiO2 06/10/17 06:10 97.6 75 17 131/78 (95) 100 Assessment & Plan Problem List: (1) Paranoid type schizophrenia, chronic state with acute exacerbation ICD Codes: F20.0 - Paranoid schizophrenia Assessment & Plan Patient is on maximum dose of Zyprexa. Continue current treatment plan Justification for Cont. Inpt. Patient would decompensate in a less restrictive setting Request HC Surrog/Guard Advoc?: Yes Gene Wheeler DO Jun 10, 2017 14:53
[2017-06-11 05:38] VITALS: BP 128/66; PULSE 87; RESP 16; TEMP 98.7; O2SAT 100
[2017-06-11] MEDS: METOPROLOL TARTRATE 25 MG TAB PO SCH ×2 (09:10→20:45)
[2017-06-11] MEDS: PANTOPRAZOLE SOD 40 MG DELAYED RELEASE TAB PO SCH (09:10)
[2017-06-11] MEDS: FERROUS SULFATE 325 MG (65 MG ELEMENTAL IRON) TAB PO SCH ×2 (12:00→17:00)
--- NOTE | 2017-06-11 14:56 | HHI.PYPN ---
Subjective Remarks Patient seen in day room with nurse Calista. Patient continues calm pleasant with me with poor to fair eye contact she continues to show marked thought blocking. She was able to discuss placement issues. Her reluctance to consider the [facility], which I agree with. However there is still some confusion but an [facility] type facility. For now continue treatment Review of Systems Except as stated in HPI: all other systems reviewed are Neg Objective Alert: Yes [place]: Person, Place, Date Mood: Calm Affect: Flat Memory Intact: Comment (no gross deficits) Hallucinations: Auditory (telling her to feel the world) Delusions: Yes Delusion Type: Paranoid (somebody is watching her), Other (that she was not born from parents) Suicidal: Ideation (deneis ) Homicidal: Ideation (deneis) Insight/Judgment Poor Vitals/IOs Vital Signs Date Time Temp Pulse Resp B/P (MAP) Pulse Ox O2 Delivery O2 Flow Rate FiO2 06/11/17 05:38 98.7 87 16 128/66 (86) 100 Assessment & Plan Problem List: (1) Paranoid type schizophrenia, chronic state with acute exacerbation ICD Codes: F20.0 - Paranoid schizophrenia Assessment & Plan Estimated LOS: days patient continue psychotic with thought blocking, she is vigilant paranoid is often somewhat. Continue to work on placement issues Justification for Cont. Inpt. At this time patient will decompensate if placed in a lower level of care Discharge Planning To be determined Request HC Surrog/Guard Advoc?: Yes Kevon Joseph MD Jun 11, 2017 14:56
[2017-06-11 18:00] VITALS: BP 149/85; PULSE 69; RESP 16; TEMP 98.6
[2017-06-12 06:21] VITALS: BP 125/89; PULSE 67; RESP 18; TEMP 97.3; O2SAT 100
[2017-06-12] MEDS: METOPROLOL TARTRATE 25 MG TAB PO SCH ×2 (08:46→20:50)
[2017-06-12] MEDS: PANTOPRAZOLE SOD 40 MG DELAYED RELEASE TAB PO SCH (08:46)
--- NOTE | 2017-06-12 11:54 | HHI.PYPN ---
Subjective Remarks Patient seen in the eller with nurse Calista, chart reviewed, patient compliant medication. Patient states her [id number] told her (it appears like thought insertion) that there is a residents for her at [address] [place] [address] in [place]. Staff will attempt to verify if that is a legitimate address. For now continue treatment Review of Systems Except as stated in HPI: all other systems reviewed are Neg Objective Alert: Yes [place]: Person, Place, Date Mood: Calm Affect: Flat Memory Intact: Comment (no gross deficits) Hallucinations: Auditory (telling her to feel the world) Delusions: Yes Delusion Type: Paranoid (somebody is watching her), Other (that she was not born from parents) Suicidal: Ideation (deneis ) Homicidal: Ideation (deneis) Insight/Judgment Very poor Vitals/IOs Vital Signs Date Time Temp Pulse Resp B/P (MAP) Pulse Ox O2 Delivery O2 Flow Rate FiO2 06/12/17 06:21 97.3 67 18 125/89 (101) 100 Intake and Output 06/12/17 06/12/17 06/13/17 08:00 16:00 00:00 Intake Total 240 ml Balance 240 ml Assessment & Plan Problem List: (1) Paranoid type schizophrenia, chronic state with acute exacerbation ICD Codes: F20.0 - Paranoid schizophrenia Assessment & Plan Estimated LOS: days patient continue psychotic with her pichardo per na tu ral talking in her head. Placement may become problematic Justification for Cont. Inpt. With this time patient decompensate if placed in a lower level of care Discharge Planning To be determined Request HC Surrog/Guard Advoc?: Yes Kevon Joseph MD Jun 12, 2017 11:54
[2017-06-12] MEDS: FERROUS SULFATE 325 MG (65 MG ELEMENTAL IRON) TAB PO SCH ×2 (12:00→16:07)
[2017-06-12 18:42] VITALS: BP 143/83; PULSE 80; RESP 18; TEMP 98.9; O2SAT 98
[2017-06-13 06:15] VITALS: BP 144/94; PULSE 72; RESP 18; TEMP 97.3; O2SAT 96
[2017-06-13] MEDS: PANTOPRAZOLE SOD 40 MG DELAYED RELEASE TAB PO SCH (09:15)
[2017-06-13] MEDS: METOPROLOL TARTRATE 25 MG TAB PO SCH ×2 (09:15→21:21)
--- NOTE | 2017-06-13 10:09 | HHI.PYPN ---
Subjective Remarks Patient seen in day room with nurse Ashwin and family practice resident amada. Chart reviewed. Patient compliant medications. Patient no behavioral problem is calm cooperative at times still with thought blocking but it is less frequent less intensity of less duration. She still believes in her supernatural . Placement continues to remain quite problematic. Review of Systems Except as stated in HPI: all other systems reviewed are Neg Objective Alert: Yes [place]: Person, Place, Date Mood: Calm Affect: Flat Memory Intact: Comment (no gross deficits) Hallucinations: Auditory (telling her to feel the world) Delusions: Yes Delusion Type: Grandiose (she feels like she has a supernatural ), Paranoid (somebody is watching her), Other (that she was not born from parents) Suicidal: Ideation (deneis ) Homicidal: Ideation (deneis) Insight/Judgment Very poor Vitals/IOs Vital Signs Date Time Temp Pulse Resp B/P (MAP) Pulse Ox O2 Delivery O2 Flow Rate FiO2 06/13/17 06:15 97.3 72 18 144/94 (111) 96 Assessment & Plan Problem List: (1) Paranoid type schizophrenia, chronic state with acute exacerbation ICD Codes: F20.0 - Paranoid schizophrenia Assessment & Plan Estimated LOS: days patient continue psychotic and delusional, though no behavioral problems, compliant medications. Placement remains problematic Justification for Cont. Inpt. At this time patient may decompensate if not placed in an appropriate level of care Discharge Planning To be determined Request HC Surrog/Guard Advoc?: Yes Kevon Joseph MD Jun 13, 2017 10:09
[2017-06-13] MEDS: FERROUS SULFATE 325 MG (65 MG ELEMENTAL IRON) TAB PO SCH ×2 (12:13→17:19)
[2017-06-13 18:33] VITALS: BP 143/91; PULSE 71; RESP 18; TEMP 97.1; O2SAT 100
[2017-06-14 06:10] VITALS: BP 136/88; PULSE 67; RESP 17; TEMP 98.7; O2SAT 100
[2017-06-14] MEDS: METOPROLOL TARTRATE 25 MG TAB PO SCH ×2 (08:55→22:07)
[2017-06-14] MEDS: PANTOPRAZOLE SOD 40 MG DELAYED RELEASE TAB PO SCH (08:55)
--- NOTE | 2017-06-14 11:50 | HHI.PYPN ---
Subjective Remarks Patient seen in day room the floor staff, chart review, patient compliant medications. Patient continues to be agreeable to finding an appropriate placement. She also continues to be somewhat isolative from the best the community though at times sitting on the day room. Continues thought blocking though the lesser extent and intensity arranging duration. For now continue treatment Review of Systems Except as stated in HPI: all other systems reviewed are Neg Objective Alert: Yes [place]: Person, Place, Date Mood: Calm Affect: Flat Memory Intact: Comment (no gross deficits) Hallucinations: Auditory (telling her to feel the world) Delusions: Yes Delusion Type: Grandiose (she feels like she has a supernatural ), Paranoid (somebody is watching her), Other (that she was not born from parents) Suicidal: Ideation (deneis ) Homicidal: Ideation (deneis) Insight/Judgment Very poor Vitals/IOs Vital Signs Date Time Temp Pulse Resp B/P (MAP) Pulse Ox O2 Delivery O2 Flow Rate FiO2 06/14/17 06:10 98.7 67 17 136/88 (104) 100 Assessment & Plan Problem List: (1) Paranoid type schizophrenia, chronic state with acute exacerbation ICD Codes: F20.0 - Paranoid schizophrenia Assessment & Plan Estimated LOS: days patient continues somewhat psychotic and vigilant, though also somewhat softer. Compliant medications Justification for Cont. Inpt. At this time patient will decompensate is not placed in an appropriate level of care Discharge Planning To be determined Request HC Surrog/Guard Advoc?: Yes Kevon Joseph MD Jun 14, 2017 11:50
[2017-06-14] MEDS: FERROUS SULFATE 325 MG (65 MG ELEMENTAL IRON) TAB PO SCH ×2 (12:00→17:00)
[2017-06-14 18:37] VITALS: BP 144/79; PULSE 61; RESP 17; TEMP 97.4; O2SAT 99
[2017-06-15 05:48] VITALS: BP 123/87; PULSE 66; TEMP 97.6
[2017-06-15] MEDS: METOPROLOL TARTRATE 25 MG TAB PO SCH ×2 (09:18→21:46)
[2017-06-15] MEDS: PANTOPRAZOLE SOD 40 MG DELAYED RELEASE TAB PO SCH (09:18)
[2017-06-15] MEDS: FERROUS SULFATE 325 MG (65 MG ELEMENTAL IRON) TAB PO SCH ×2 (12:11→17:25)
--- NOTE | 2017-06-15 13:21 | HHI.PYPN ---
Subjective Remarks Patient seen in the day room floor staff, chart review, patient compliant medications. Patient continues calm pleasant with me though at times appears somewhat distractible with thought blocking continuing. She is slow show some vague confusion related to discussion of placement issues. For now continue treatment. Review of Systems Except as stated in HPI: all other systems reviewed are Neg Objective Alert: Yes [place]: Person, Place, Date Mood: Calm Affect: Flat Memory Intact: Comment (no gross deficits) Hallucinations: Auditory (telling her to feel the world) Delusions: Yes Delusion Type: Grandiose (she feels like she has a supernatural ), Paranoid (somebody is watching her), Other (that she was not born from parents) Suicidal: Ideation (deneis ) Homicidal: Ideation (deneis) Insight/Judgment Poor Vitals/IOs Vital Signs Date Time Temp Pulse Resp B/P (MAP) Pulse Ox O2 Delivery O2 Flow Rate FiO2 06/15/17 05:48 97.6 66 123/87 (99) 06/14/17 18:37 17 99 Assessment & Plan Problem List: (1) Paranoid type schizophrenia, chronic state with acute exacerbation ICD Codes: F20.0 - Paranoid schizophrenia Assessment & Plan Estimated LOS: days patient continues with thought blocking, continues to verify her "supernatural" , compliant medications Justification for Cont. Inpt. At this time patient will decompensate if not placed in an appropriate level of care Discharge Planning To be determined Request HC Surrog/Guard Advoc?: Yes Kevon Joseph MD Jun 15, 2017 13:21
[2017-06-16 06:42] VITALS: BP 124/79; PULSE 60; RESP 18; TEMP 98.2; O2SAT 100
[2017-06-16] MEDS: PANTOPRAZOLE SOD 40 MG DELAYED RELEASE TAB PO SCH (10:07)
[2017-06-16] MEDS: METOPROLOL TARTRATE 25 MG TAB PO SCH ×2 (10:08→22:20)
--- NOTE | 2017-06-16 13:04 | HHI.PYPN ---
Subjective Remarks Patient seen and case discussed with nurse. Labs reviewed. Patient remains quiet and does not engage with staff. She does stay out of her room. Appears to be paranoid. Review of Systems Except as stated in HPI: all other systems reviewed are Neg Objective Alert: Yes [place]: Person, Place, Date Mood: Calm Affect: Flat Memory Intact: Comment (no gross deficits) Hallucinations: Auditory (telling her to feel the world) Delusions: Yes Delusion Type: Grandiose (she feels like she has a supernatural ), Paranoid (somebody is watching her), Other (that she was not born from parents) Suicidal: Ideation (deneis ) Homicidal: Ideation (deneis) Insight/Judgment Impaired. Vitals/IOs Vital Signs Date Time Temp Pulse Resp B/P (MAP) Pulse Ox O2 Delivery O2 Flow Rate FiO2 06/16/17 06:42 98.2 60 18 124/79 (94) 100 Assessment & Plan Problem List: (1) Paranoid type schizophrenia, chronic state with acute exacerbation ICD Codes: F20.0 - Paranoid schizophrenia Assessment & Plan Estimated LOS: days continue to evaluate antipsychotic medication for efficacy versus tolerability. Justification for Cont. Inpt. Psychotic and unable to care for self. Request HC Surrog/Guard Advoc?: Yes Pillo Monahan MD Jun 16, 2017 13:04
[2017-06-16] MEDS: FERROUS SULFATE 325 MG (65 MG ELEMENTAL IRON) TAB PO SCH ×2 (13:07→18:07)
[2017-06-16 18:06] VITALS: BP 136/82; PULSE 70; RESP 18; TEMP 98.2; O2SAT 100
[2017-06-17 07:17] VITALS: BP 124/79; PULSE 66; RESP 17; TEMP 98.1; O2SAT 100
[2017-06-17] MEDS: PANTOPRAZOLE SOD 40 MG DELAYED RELEASE TAB PO SCH (09:00)
[2017-06-17] MEDS: METOPROLOL TARTRATE 25 MG TAB PO SCH ×2 (09:00→22:09)
[2017-06-17] MEDS: FERROUS SULFATE 325 MG (65 MG ELEMENTAL IRON) TAB PO SCH ×2 (12:26→17:19)
--- NOTE | 2017-06-17 15:42 | HHI.PYPN ---
Subjective Remarks Patient seen, chart reviewed and case discussed with nurse. Patient continues to appear paranoid. This physician is interested in titrating antipsychotic medication. Review of Systems Except as stated in HPI: all other systems reviewed are Neg Objective Alert: Yes [place]: Person, Place, Date Mood: Calm Affect: Flat Memory Intact: Comment (no gross deficits) Hallucinations: Auditory (telling her to feel the world) Delusions: Yes Delusion Type: Grandiose (she feels like she has a supernatural ), Paranoid (somebody is watching her), Other (that she was not born from parents) Suicidal: Ideation (deneis ) Homicidal: Ideation (deneis) Insight/Judgment Impaired Vitals/IOs Vital Signs Date Time Temp Pulse Resp B/P (MAP) Pulse Ox O2 Delivery O2 Flow Rate FiO2 06/17/17 07:17 98.1 66 17 124/79 (94) 100 Intake and Output 06/17/17 06/17/17 06/17/17 07:59 15:59 23:59 Intake Total 360 ml 360 ml Balance 360 ml 360 ml Assessment & Plan Problem List: (1) Paranoid type schizophrenia, chronic state with acute exacerbation ICD Codes: F20.0 - Paranoid schizophrenia Assessment & Plan Estimated LOS: days will look to increase dose of antipsychotic medication. Justification for Cont. Inpt. Psychotic and unable to care for self. Request HC Surrog/Guard Advoc?: Yes Pillo Monahan MD Jun 17, 2017 15:42
[2017-06-17 18:21] VITALS: BP 154/85; PULSE 69; RESP 18; TEMP 98.6; O2SAT 100
[2017-06-18 06:18] VITALS: BP 114/72; PULSE 74; RESP 18; TEMP 98.1; O2SAT 99
[2017-06-18] MEDS: METOPROLOL TARTRATE 25 MG TAB PO SCH ×2 (09:02→21:53)
[2017-06-18] MEDS: PANTOPRAZOLE SOD 40 MG DELAYED RELEASE TAB PO SCH (09:02)
[2017-06-18] MEDS: FERROUS SULFATE 325 MG (65 MG ELEMENTAL IRON) TAB PO SCH ×2 (12:30→17:17)
--- NOTE | 2017-06-18 13:14 | HHI.PYPN ---
Subjective Remarks Patient seen and examined with nurse. Chart reviewed. Case discussed with nursing staff reports the patient is more spontaneous. On my examination today , the patient presents with somewhat stilted speech. She remains a little bit flat with respect to her affect. She denies AVH but appears internally preoccupied. She endorses some ongoing paranoia. Denies SI or HI. Denies side effects from medications but does say that the Zyprexa makes her a little bit tired, and we discuss adjusting dosing to minimize this effect. No physical complaints. Review of Systems ROS Limitations: Psychotic, Poor Historian Except as stated in HPI: all other systems reviewed are Neg Objective Alert: Yes [place]: Person, Place, Date Mood: Calm Affect: Flat Memory Intact: Comment (no gross deficits) Hallucinations: Other (denies AVH but appears internally preoccupied) Delusions: Yes Delusion Type: Paranoid Suicidal: Ideation (denies SI) Homicidal: Ideation (denies HI) Insight/Judgment Poor Remarks Motor abnormalities noted Labs Labs reviewed. Vitals/IOs Vital Signs Date Time Temp Pulse Resp B/P (MAP) Pulse Ox O2 Delivery O2 Flow Rate FiO2 06/18/17 06:18 98.1 74 18 114/72 (86) 99 Intake and Output 06/18/17 06/18/17 06/19/17 08:00 16:00 00:00 Intake Total 240 ml 240 ml Balance 240 ml 240 ml Assessment & Plan Problem List: (1) Paranoid type schizophrenia, chronic state with acute exacerbation ICD Codes: F20.0 - Paranoid schizophrenia Assessment & Plan Adjust Zyprexa dosing to 10 mg daily and 20 mg at bedtime to try to lessen fatigue. Patient requires additional time for response to antipsychotic. Continue to monitor on the inpatient unit. Continue other medications and care as ordered. Justification for Cont. Inpt. Medication adjustment. Risk for decompensation. Impairment in reality construction. Discharge Planning Per Dr. Joseph Request HC Surrog/Guard Advoc?: Yes Jason Catherine MD Jun 18, 2017 13:14
[2017-06-18 18:29] VITALS: BP 136/80; PULSE 75; RESP 18; TEMP 98.1; O2SAT 100
[2017-06-19 06:08] VITALS: BP 115/67; PULSE 64; RESP 17; TEMP 98.1; O2SAT 100
[2017-06-19] MEDS: PANTOPRAZOLE SOD 40 MG DELAYED RELEASE TAB PO SCH (09:07)
[2017-06-19] MEDS: METOPROLOL TARTRATE 25 MG TAB PO SCH ×2 (09:07→21:01)
[2017-06-19] MEDS: OLANZapine 10 MG TAB PO SCH ×2 (09:07→21:01)
[2017-06-19] MEDS: FERROUS SULFATE 325 MG (65 MG ELEMENTAL IRON) TAB PO SCH ×2 (11:37→18:25)
--- NOTE | 2017-06-19 12:20 | HHI.PYPN ---
Subjective Remarks Patient seen in [place] with nurse Matthew, chart review, patient compliant medication. Patient continues calm cooperative though still believes that her "supernatural" can speak with her at any time. She still shows concern about placement issues continues at times somewhat distracted with moderate thought blocking though she denies suicidality Review of Systems Except as stated in HPI: all other systems reviewed are Neg Objective Alert: Yes [place]: Person, Place, Date Mood: Calm Affect: Flat Memory Intact: Comment (no gross deficits) Hallucinations: Other (denies AVH but appears internally preoccupied) Delusions: Yes Delusion Type: Paranoid Suicidal: Ideation (denies SI) Homicidal: Ideation (denies HI) Insight/Judgment Very poor Vitals/IOs Vital Signs Date Time Temp Pulse Resp B/P (MAP) Pulse Ox O2 Delivery O2 Flow Rate FiO2 06/19/17 06:08 98.1 64 17 115/67 (83) 100 Assessment & Plan Problem List: (1) Paranoid type schizophrenia, chronic state with acute exacerbation ICD Codes: F20.0 - Paranoid schizophrenia Assessment & Plan Estimated LOS: days patient continues delusional, no significant insight, compliant medications. For now continue treatment Justification for Cont. Inpt. At this time patient will decompensate placed on the lower level of care Discharge Planning To be determined Request HC Surrog/Guard Advoc?: Yes Kevon Joseph MD Jun 19, 2017 12:20
[2017-06-19 18:00] VITALS: BP 143/72; PULSE 85; RESP 18; TEMP 98.3; O2SAT 98
[2017-06-20 06:07] VITALS: BP 134/63; PULSE 80; RESP 18; TEMP 98.8; O2SAT 99
[2017-06-20] MEDS: OLANZapine 10 MG TAB PO SCH ×2 (09:25→21:25)
[2017-06-20] MEDS: PANTOPRAZOLE SOD 40 MG DELAYED RELEASE TAB PO SCH (09:25)
[2017-06-20] MEDS: METOPROLOL TARTRATE 25 MG TAB PO SCH ×2 (09:25→21:25)
[2017-06-20] MEDS: FERROUS SULFATE 325 MG (65 MG ELEMENTAL IRON) TAB PO SCH ×2 (12:16→17:15)
--- NOTE | 2017-06-20 14:00 | HHI.PYPN ---
Subjective Remarks Patient seen in dayroom the floor staff, chart review, patient compliant medications. Patient continues no behavioral problems, however she also continues to show thought blocking, being somewhat distractible, still believing in her "supernatural" . She also remains anxious and nervous about placement issues Review of Systems Except as stated in HPI: all other systems reviewed are Neg Objective Alert: Yes [place]: Person, Place, Date Mood: Calm Affect: Flat Memory Intact: Comment (no gross deficits) Hallucinations: Other (denies AVH but appears internally preoccupied) Delusions: Yes Delusion Type: Paranoid Suicidal: Ideation (denies SI) Homicidal: Ideation (denies HI) Insight/Judgment Very poor Vitals/IOs Vital Signs Date Time Temp Pulse Resp B/P (MAP) Pulse Ox O2 Delivery O2 Flow Rate FiO2 06/20/17 06:07 98.8 80 18 134/63 (86) 99 Assessment & Plan Problem List: (1) Paranoid type schizophrenia, chronic state with acute exacerbation ICD Codes: F20.0 - Paranoid schizophrenia Assessment & Plan Estimated LOS: days patient remained psychotic and delusional, little insight. Compliant medications. Placement may become problematic Justification for Cont. Inpt. At this time patient will decompensate now placed in an appropriate level of care Discharge Planning To be determined Request HC Surrog/Guard Advoc?: Yes Kevon Joseph MD Jun 20, 2017 14:00
[2017-06-20 18:00] VITALS: BP 154/85; PULSE 69; RESP 18; TEMP 97.9; O2SAT 100
[2017-06-21 05:44] VITALS: BP 101/57; PULSE 68; RESP 17; TEMP 98.4
[2017-06-21] MEDS: OLANZapine 10 MG TAB PO SCH ×2 (08:55→21:47)
[2017-06-21] MEDS: PANTOPRAZOLE SOD 40 MG DELAYED RELEASE TAB PO SCH (08:55)
[2017-06-21] MEDS: METOPROLOL TARTRATE 25 MG TAB PO SCH ×2 (09:00→21:47)
[2017-06-21] MEDS: FERROUS SULFATE 325 MG (65 MG ELEMENTAL IRON) TAB PO SCH ×2 (12:05→17:00)
--- NOTE | 2017-06-21 13:38 | HHI.PYPN ---
Subjective Remarks Patient seen in [place] with nurse Stacey, chart review, patient compliant medication. Patient continues calm pleasant, continues with thought blocking [place] of her right shoulder though the frequency and intensity is diminished. She still believes in the "supernatural" valderrama of her . She still shows anxiety related to placement and potential of being homeless Review of Systems Except as stated in HPI: all other systems reviewed are Neg Objective Alert: Yes [place]: Person, Place, Date Mood: Calm Affect: Flat Memory Intact: Comment (no gross deficits) Hallucinations: Other (denies AVH but appears internally preoccupied) Delusions: Yes Delusion Type: Paranoid Suicidal: Ideation (denies SI) Homicidal: Ideation (denies HI) Insight/Judgment Poor Vitals/IOs Vital Signs Date Time Temp Pulse Resp B/P (MAP) Pulse Ox O2 Delivery O2 Flow Rate FiO2 06/21/17 05:44 98.4 68 17 101/57 (72) 06/20/17 18:00 100 Intake and Output 06/21/17 06/21/17 06/22/17 08:00 16:00 00:00 Intake Total 720 ml Balance 720 ml Assessment & Plan Problem List: (1) Paranoid type schizophrenia, chronic state with acute exacerbation ICD Codes: F20.0 - Paranoid schizophrenia Assessment & Plan Estimated LOS: days patient continues psychotic delusional, but no behavioral problems. Compliant medication. For now continue treatment Justification for Cont. Inpt. At this time patient decompensate now placed in an appropriate level of care Discharge Planning To be determined Request HC Surrog/Guard Advoc?: Yes eKvon Joseph MD Jun 21, 2017 13:38
[2017-06-21 17:05] VITALS: BP 127/79; PULSE 62; RESP 16; TEMP 98.4; O2SAT 100
[2017-06-22 06:10] VITALS: BP 108/55; PULSE 64; RESP 16; TEMP 96.7; O2SAT 98
[2017-06-22] MEDS: METOPROLOL TARTRATE 25 MG TAB PO SCH ×2 (08:22→20:22)
[2017-06-22] MEDS: PANTOPRAZOLE SOD 40 MG DELAYED RELEASE TAB PO SCH (08:22)
[2017-06-22] MEDS: OLANZapine 10 MG TAB PO SCH ×2 (08:22→20:23)
[2017-06-22] MEDS: FERROUS SULFATE 325 MG (65 MG ELEMENTAL IRON) TAB PO SCH ×2 (12:12→16:35)
--- NOTE | 2017-06-22 14:47 | HHI.PYPN ---
Subjective Remarks Patient seen in day room with nurse Salvador. Chart review, patient compliant medication. Patient continues, pleasant with me, though at times appears to be thought blocking and distracted. Talk about discharge planning and my concern about her possible being homeless and her being a victim waiting to happen. She stated she doesn't have to worry about that because of her super natural . For now continue treatment Review of Systems Except as stated in HPI: all other systems reviewed are Neg Objective Alert: Yes [place]: Person, Place, Date Mood: Calm Affect: Flat Memory Intact: Comment (no gross deficits) Hallucinations: Other (denies AVH but appears internally preoccupied) Delusions: Yes Delusion Type: Paranoid Suicidal: Ideation (denies SI) Homicidal: Ideation (denies HI) Insight/Judgment Very poor Vitals/IOs Vital Signs Date Time Temp Pulse Resp B/P (MAP) Pulse Ox O2 Delivery O2 Flow Rate FiO2 06/22/17 06:10 96.7 64 16 108/55 (72) 98 Intake and Output 06/22/17 06/22/17 06/23/17 08:00 16:00 00:00 Intake Total 240 ml Balance 240 ml Assessment & Plan Problem List: (1) Paranoid type schizophrenia, chronic state with acute exacerbation ICD Codes: F20.0 - Paranoid schizophrenia Assessment & Plan Estimated LOS: days patient continue psychotic and delusional, though no behavioral problems, compliant medications Justification for Cont. Inpt. At this time patient will decompensate if not placed in an appropriate level of care Discharge Planning To be determined Request HC Surrog/Guard Advoc?: Yes Kevon Joseph MD Jun 22, 2017 14:47
[2017-06-22 18:29] VITALS: BP 152/89; PULSE 76; RESP 16; TEMP 97.2; O2SAT 100
[2017-06-23 06:32] VITALS: BP 128/82; PULSE 76; RESP 17; TEMP 98.2; O2SAT 100
[2017-06-23] MEDS: METOPROLOL TARTRATE 25 MG TAB PO SCH ×2 (10:12→21:31)
[2017-06-23] MEDS: PANTOPRAZOLE SOD 40 MG DELAYED RELEASE TAB PO SCH (10:12)
[2017-06-23] MEDS: OLANZapine 10 MG TAB PO SCH ×2 (10:12→21:30)
[2017-06-23] MEDS: FERROUS SULFATE 325 MG (65 MG ELEMENTAL IRON) TAB PO SCH ×2 (12:00→17:06)
--- NOTE | 2017-06-23 16:41 | HHI.PYPN ---
Subjective Remarks Patient was seen and case discussed with nursing. Patient remains seclusive to self. Remains internally preoccupied with bizarre delusions. Believes she has many husbands that her supernaturals special valderrama. Affect is flat and there is some psychomotor retardation. Compliant with medications and tolerating it well Objective Alert: Yes [place]: Person, Place, Date Mood: Calm Affect: Flat Memory Intact: Comment (no gross deficits) Hallucinations: Other (denies AVH but appears internally preoccupied) Delusions: Yes Delusion Type: Other (various bizarre delusions) Suicidal: Ideation (denies SI) Homicidal: Ideation (denies HI) Insight/Judgment Poor Vitals/IOs Vital Signs Date Time Temp Pulse Resp B/P (MAP) Pulse Ox O2 Delivery O2 Flow Rate FiO2 06/23/17 06:32 98.2 76 17 128/82 (97) 100 Assessment & Plan Problem List: (1) Paranoid type schizophrenia, chronic state with acute exacerbation ICD Codes: F20.0 - Paranoid schizophrenia Assessment & Plan Continue current treatment plan Justification for Cont. Inpt. Patient would decompensate in a less restrictive setting Request HC Surrog/Guard Advoc?: Yes Gene Wheeler DO Jun 23, 2017 16:41
[2017-06-23 18:00] VITALS: BP 143/87; PULSE 68; RESP 16; TEMP 97.3; O2SAT 100
[2017-06-24 05:40] VITALS: BP 121/79; PULSE 72; RESP 16; TEMP 97.6; O2SAT 100
[2017-06-24] MEDS: OLANZapine 10 MG TAB PO SCH ×2 (09:01→20:49)
[2017-06-24] MEDS: PANTOPRAZOLE SOD 40 MG DELAYED RELEASE TAB PO SCH (09:01)
[2017-06-24] MEDS: METOPROLOL TARTRATE 25 MG TAB PO SCH ×2 (09:01→20:50)
[2017-06-24] MEDS: FERROUS SULFATE 325 MG (65 MG ELEMENTAL IRON) TAB PO SCH ×2 (11:33→17:46)
--- NOTE | 2017-06-24 16:52 | HHI.PYPN ---
Subjective Remarks Patient was seen and case discussed with nursing. Patient remains flat, [place], and hyperverbal. She does her best to minimize her psychotic symptoms. However she admits to auditory hallucinations but would not specify the content. Today she is focused she does "not have schizophrenia, and it is normal." Behaving well on the unit and compliant with medications Objective Alert: Yes [place]: Person, Place, Date Mood: Calm Affect: Blunted, Other (shy) Memory Intact: Comment (no gross deficits) Hallucinations: Auditory (nonspecific) Delusions: Yes Delusion Type: Other (various bizarre delusions) Suicidal: Ideation (denies SI) Homicidal: Ideation (denies HI) Insight/Judgment Poor Vitals/IOs Vital Signs Date Time Temp Pulse Resp B/P (MAP) Pulse Ox O2 Delivery O2 Flow Rate FiO2 06/24/17 05:40 97.6 72 16 121/79 (93) 100 Assessment & Plan Problem List: (1) Paranoid type schizophrenia, chronic state with acute exacerbation ICD Codes: F20.0 - Paranoid schizophrenia Assessment & Plan Patient is at max dose of antipsychotic. Consider cross-taper to another agent Justification for Cont. Inpt. Patient would decompensate in a less restrictive setting Request HC Surrog/Guard Advoc?: Yes Gene Wheeler DO Jun 24, 2017 16:52
[2017-06-25 05:32] VITALS: BP 118/70; PULSE 71; RESP 18; TEMP 97.9; O2SAT 100
[2017-06-25] MEDS: PANTOPRAZOLE SOD 40 MG DELAYED RELEASE TAB PO SCH (08:51)
[2017-06-25] MEDS: METOPROLOL TARTRATE 25 MG TAB PO SCH ×2 (08:52→21:37)
[2017-06-25] MEDS: OLANZapine 10 MG TAB PO SCH ×2 (08:52→21:36)
[2017-06-25] MEDS: FERROUS SULFATE 325 MG (65 MG ELEMENTAL IRON) TAB PO SCH ×2 (12:00→17:00)
--- NOTE | 2017-06-25 16:21 | HHI.PYPN ---
Subjective Remarks Patient was seen and case discussed with nursing. Patient remains internally stimulated, flat, and hyperverbal. She remains bizarre delusions of a defined and her having supernatural valderrama. Today she denies hearing voices she mentioned yesterday Objective Alert: Yes [place]: Person, Place, Date Mood: Calm Affect: Flat, Other (shy) Memory Intact: Comment (no gross deficits) Hallucinations: Auditory (denies) Delusions: Yes Delusion Type: Other (various bizarre delusions) Suicidal: Ideation (denies SI) Homicidal: Ideation (denies HI) Insight/Judgment Poor Vitals/IOs Vital Signs Date Time Temp Pulse Resp B/P (MAP) Pulse Ox O2 Delivery O2 Flow Rate FiO2 06/25/17 05:32 97.9 71 18 118/70 (86) 100 Assessment & Plan Problem List: (1) Paranoid type schizophrenia, chronic state with acute exacerbation ICD Codes: F20.0 - Paranoid schizophrenia Assessment & Plan Consider change to [place], continue current treatment plan Justification for Cont. Inpt. Patient would decompensate in a less restrictive setting Request HC Surrog/Guard Advoc?: Yes Gene Wheeler DO Jun 25, 2017 16:21
[2017-06-25 17:58] VITALS: BP 121/78; PULSE 70; RESP 18; TEMP 98.1; O2SAT 100
[2017-06-25 20:00] VITALS: BP 115/63; PULSE 73
[2017-06-26 06:32] VITALS: BP 115/80; PULSE 59; RESP 16; TEMP 98.2; O2SAT 100
[2017-06-26] MEDS: METOPROLOL TARTRATE 25 MG TAB PO SCH ×2 (09:00→21:00)
[2017-06-26] MEDS: PANTOPRAZOLE SOD 40 MG DELAYED RELEASE TAB PO SCH (09:00)
[2017-06-26] MEDS: OLANZapine 10 MG TAB PO SCH ×2 (09:00→21:16)
[2017-06-26] MEDS: FERROUS SULFATE 325 MG (65 MG ELEMENTAL IRON) TAB PO SCH ×2 (12:00→17:00)
--- NOTE | 2017-06-26 17:22 | HHI.PYPN ---
Subjective Remarks Patient seen for follow-up, chart review. After discussion with nursing staff patient noted to be disorganized last evening but slept well. Patient initially found at participating in group activity, singing karaoke. Patient states that she had been feeling "fine", no problems with appetite, reports tolerating medications well. Patient states that she continues to have auditory hallucinations which she describes are voices from supernatural creatures and when asked where the voices of persons she knew she states that no that they are not persons they are creatures. She also mentions that she has supernatural husbands where she has not seen nor heard voices from them but believes she has them. Patient reports that her mood lately has been "fine" but had been feeling sad recently this morning but was unable to elaborate. Review of Systems Except as stated in HPI: all other systems reviewed are Neg Objective Alert: Yes [place]: Person, Place, Date Mood: Calm Affect: Flat Memory Intact: Comment (no gross deficits) Hallucinations: Auditory (denies at time of interview) Delusions: Yes Delusion Type: Other (various bizarre delusions of supernatural creatures) Suicidal: Ideation (denies SI) Homicidal: Ideation (denies HI) Insight/Judgment Poor insight, limited impulse control and judgment Vitals/IOs Vital Signs Date Time Temp Pulse Resp B/P (MAP) Pulse Ox O2 Delivery O2 Flow Rate FiO2 06/26/17 06:32 98.2 59 16 115/80 (92) 100 Assessment & Plan Problem List: (1) Paranoid type schizophrenia, chronic state with acute exacerbation ICD Codes: F20.0 - Paranoid schizophrenia Assessment & Plan Patient at this time continues to endorse bizarre delusions of supernatural creatures as well as auditory hallucinations from the same. Patient has been noted to be more participatory in groups and activities. Will continue current treatment regimen as patient noted to be more engaging with staff and activities. If response continues to be partial will consider switching antipsychotics. Continue to monitor medication response and adverse drug reactions. Continue to encourage patient to participate in groups and activities while the unit. Discharge planning in progress Justification for Cont. Inpt. Patient at risk for further decompensation if at a lower level of care Request HC Surrog/Guard Advoc?: Yes Robbie Garza MD Jun 26, 2017 17:22
[2017-06-26 17:45] VITALS: BP 135/79; PULSE 75; RESP 18; TEMP 97.7; O2SAT 100
[2017-06-26 20:30] VITALS: BP 107/61; PULSE 71
[2017-06-27 06:25] VITALS: BP 121/80; PULSE 73; RESP 18; TEMP 98.1; O2SAT 99
[2017-06-27] MEDS: PANTOPRAZOLE SOD 40 MG DELAYED RELEASE TAB PO SCH (09:13)
[2017-06-27] MEDS: METOPROLOL TARTRATE 25 MG TAB PO SCH ×2 (09:13→21:00)
[2017-06-27] MEDS: OLANZapine 10 MG TAB PO SCH ×2 (09:14→21:13)
[2017-06-27] MEDS: FERROUS SULFATE 325 MG (65 MG ELEMENTAL IRON) TAB PO SCH ×2 (12:02→16:36)
--- NOTE | 2017-06-27 17:40 | HHI.PYPN ---
Subjective Remarks Patient seen for follow-up, chart reviewed. Patient found walking in the hallway but able to engage in interview. Patient states feeling "fine" and wondering if she will be placed in a living facility that she can afford with her current income. She reports feeling that her current medication regimen is helping in that the AH are less intense, 3 or 4/10 (10 being most intense) as compared to before yvonne 06/17. She states that she continues to hear "positive and negative" which positive coming from her "supernatural husbands" and negative from "supernatural creatures". She reports attending groups. Currently she reports feeling "fine", denies SI, HI, continues to endorse AH and bizarre delusions. Review of Systems Except as stated in HPI: all other systems reviewed are Neg Objective Alert: Yes [place]: Person, Place, Date Mood: Calm Affect: Restricted (but moments which she would smile and laugh) Memory Intact: Comment (no gross deficits) Hallucinations: Auditory (denies at time of interview) Delusions: Yes Delusion Type: Other (various bizarre delusions of supernatural creatures) Suicidal: Ideation (denies SI) Homicidal: Ideation (denies HI) Insight/Judgment poor insight, fair impulse control, limited judgment. Vitals/IOs Vital Signs Date Time Temp Pulse Resp B/P (MAP) Pulse Ox O2 Delivery O2 Flow Rate FiO2 06/27/17 06:25 98.1 73 18 121/80 (94) 99 Assessment & Plan Problem List: (1) Paranoid type schizophrenia, chronic state with acute exacerbation ICD Codes: F20.0 - Paranoid schizophrenia Assessment & Plan Patient continues to experience AH but much less intensity and frequency. Patient responding to current treatment regimen with improvement of AH but continues to have bizarre delusions. Continue current treatment for now. Discharge planning in progress. Justification for Cont. Inpt. At risk for further decompensation if at lower level of care. Request HC Surrog/Guard Advoc?: Yes Robbie Garza MD Jun 27, 2017 17:40
[2017-06-27 18:51] VITALS: BP 155/86; PULSE 71; RESP 18; TEMP 97.4; O2SAT 97
[2017-06-28 05:59] VITALS: BP 108/67; PULSE 63; RESP 18; TEMP 97.9
[2017-06-28] MEDS: METOPROLOL TARTRATE 25 MG TAB PO SCH ×2 (09:00→21:36)
[2017-06-28] MEDS: PANTOPRAZOLE SOD 40 MG DELAYED RELEASE TAB PO SCH (09:00)
[2017-06-28] MEDS: OLANZapine 10 MG TAB PO SCH ×2 (09:00→21:36)
[2017-06-28] MEDS: FERROUS SULFATE 325 MG (65 MG ELEMENTAL IRON) TAB PO SCH ×2 (12:00→17:00)
--- NOTE | 2017-06-28 17:57 | HHI.PYPN ---
Subjective Remarks Patient seen for follow up; chart reviewed. Patient noted to be sitting on hospital bed, calm and cooperative with interview. She states that she feels "the same", recalls that she was evicted from her last apartment whom she had a roommate with and states that she stopped paying rent because her "supernatural husbands" told her to. She refuses to elaborate about her family or social history stating that she cannot talk about it. She reports tolerating medications ok, continues to have AH of supernatural creatures and husbands. Review of Systems Except as stated in HPI: all other systems reviewed are Neg Objective Alert: Yes [place]: Person, Place, Date Mood: Calm Affect: Restricted (but moments which she would smile and laugh) Memory Intact: Comment (no gross deficits) Hallucinations: Auditory (denies at time of interview) Delusions: Yes Delusion Type: Other (various bizarre delusions of supernatural creatures) Suicidal: Ideation (denies SI) Homicidal: Ideation (denies HI) Insight/Judgment poor insight, fair impulse control and limited judgment Vitals/IOs Vital Signs Date Time Temp Pulse Resp B/P (MAP) Pulse Ox O2 Delivery O2 Flow Rate FiO2 06/28/17 05:59 97.9 63 18 108/67 (81) 06/27/17 18:51 97 Intake and Output 06/28/17 06/28/17 06/29/17 08:00 16:00 00:00 Intake Total 360 ml Balance 360 ml Assessment & Plan Problem List: (1) Paranoid type schizophrenia, chronic state with acute exacerbation ICD Codes: F20.0 - Paranoid schizophrenia Assessment & Plan Patient continues to have AH and bizarre delusions with some paranoia. Will continue current treatment. Discharge planning in progress. Justification for Cont. Inpt. At risk for further decompensation if at lower level of care. Request HC Surrog/Guard Advoc?: Yes Robbie Garza MD Jun 28, 2017 17:57
[2017-06-29 05:33] VITALS: BP 113/75; PULSE 67; RESP 16; TEMP 98; O2SAT 100
[2017-06-29] MEDS: PANTOPRAZOLE SOD 40 MG DELAYED RELEASE TAB PO SCH (09:17)
[2017-06-29] MEDS: OLANZapine 10 MG TAB PO SCH ×2 (09:17→21:30)
[2017-06-29] MEDS: METOPROLOL TARTRATE 25 MG TAB PO SCH ×2 (09:17→21:30)
[2017-06-29] MEDS: FERROUS SULFATE 325 MG (65 MG ELEMENTAL IRON) TAB PO SCH ×2 (11:51→17:00)
--- NOTE | 2017-06-29 16:51 | HHI.PYPN ---
Subjective Remarks Patient seen for follow up; chart reviewed. Patient found writing in her journal in her room. She states feeling "the same", continues to endorse bizarre delusions of having "supernatural husbands" and AH of them as well as "supernatural creatures" but are less intense and hears them "far away" and are not distressing to her at this time. She reports continuing attending groups and activities. Review of Systems Except as stated in HPI: all other systems reviewed are Neg Objective Alert: Yes [place]: Person, Place, Date Mood: Calm Affect: Restricted (but moments which she would smile and laugh) Memory Intact: Comment (no gross deficits) Hallucinations: Auditory (denies at time of interview) Delusions: Yes Delusion Type: Other (various bizarre delusions of supernatural creatures) Suicidal: Ideation (denies SI) Homicidal: Ideation (denies HI) Insight/Judgment poor insight, impulse control and judgment. Vitals/IOs Vital Signs Date Time Temp Pulse Resp B/P (MAP) Pulse Ox O2 Delivery O2 Flow Rate FiO2 06/29/17 05:33 98.0 67 16 113/75 (88) 100 Assessment & Plan Problem List: (1) Paranoid type schizophrenia, chronic state with acute exacerbation ICD Codes: F20.0 - Paranoid schizophrenia Assessment & Plan Patient continues with bizarre delusions and AH but are less intense. Continue current treatment. Discharge planning in progress. Patient agrees to be referred to an [facility]F-WAY. Justification for Cont. Inpt. At risk for further decompensation if at lower level of care. Request HC Surrog/Guard Advoc?: Yes Robbei Garza MD Jun 29, 2017 16:51
[2017-06-29 18:35] VITALS: BP 144/78; PULSE 70; RESP 18; TEMP 97.8; O2SAT 100
[2017-06-30 06:41] VITALS: BP 115/67; PULSE 68; RESP 16; TEMP 98; O2SAT 100
[2017-06-30] MEDS: OLANZapine 10 MG TAB PO SCH ×2 (09:00→23:54)
[2017-06-30] MEDS: METOPROLOL TARTRATE 25 MG TAB PO SCH ×2 (10:07→23:54)
[2017-06-30] MEDS: PANTOPRAZOLE SOD 40 MG DELAYED RELEASE TAB PO SCH (10:07)
[2017-06-30] MEDS: FERROUS SULFATE 325 MG (65 MG ELEMENTAL IRON) TAB PO SCH ×2 (12:32→17:55)
--- NOTE | 2017-06-30 15:04 | HHI.PYPN ---
Subjective Remarks Pt seen and discussed with staff. She has been actively responding to AH and engaging in bizarre behavior. She states that she was told to follow a horse and that she was to clean up the unit. She is talking medications without side effects. No SI/HI Objective Alert: Yes [place]: Person, Place, Date Mood: Calm Affect: Restricted (but moments which she would smile and laugh) Memory Intact: Comment (no gross deficits) Hallucinations: Auditory (denies at time of interview) Delusions: Yes Delusion Type: Other (various bizarre delusions of supernatural creatures) Suicidal: Ideation (denies SI) Homicidal: Ideation (denies HI) Insight/Judgment poor Vitals/IOs Vital Signs Date Time Temp Pulse Resp B/P (MAP) Pulse Ox O2 Delivery O2 Flow Rate FiO2 06/30/17 06:41 98.0 68 16 115/67 (83) 100 Assessment & Plan Problem List: (1) Paranoid type schizophrenia, chronic state with acute exacerbation ICD Codes: F20.0 - Paranoid schizophrenia Assessment & Plan Continue current tx plan. Estimated LOS: days Justification for Cont. Inpt. psychosis Request HC Surrog/Guard Advoc?: Yes Rafia Gloria MD Jun 30, 2017 15:04
[2017-06-30 18:51] VITALS: BP 118/70; PULSE 75; RESP 18; TEMP 98.5; O2SAT 99
[2017-07-01 06:37] VITALS: BP 116/81; PULSE 73; RESP 18; TEMP 99.1; O2SAT 99
[2017-07-01] MEDS: PANTOPRAZOLE SOD 40 MG DELAYED RELEASE TAB PO SCH (09:00)
[2017-07-01] MEDS: METOPROLOL TARTRATE 25 MG TAB PO SCH ×2 (09:00→22:11)
[2017-07-01] MEDS: OLANZapine 10 MG TAB PO SCH ×2 (09:00→22:11)
[2017-07-01] MEDS: FERROUS SULFATE 325 MG (65 MG ELEMENTAL IRON) TAB PO SCH ×2 (12:19→17:30)
--- NOTE | 2017-07-01 15:04 | HHI.PYPN ---
Subjective Remarks Pt seen and discussed with staff. She has been out of her room more today and went out for fresh air, but keeps interactions to a minimal. AH persist. No medication side effects. No SI/HI Objective Alert: Yes [place]: Person, Place, Date Mood: Calm Affect: Restricted (but moments which she would smile and laugh) Memory Intact: Comment (no gross deficits) Hallucinations: Auditory (denies at time of interview) Delusions: Yes Delusion Type: Other (bizarre) Suicidal: Ideation (denies SI) Homicidal: Ideation (denies HI) Insight/Judgment poor Vitals/IOs Vital Signs Date Time Temp Pulse Resp B/P (MAP) Pulse Ox O2 Delivery O2 Flow Rate FiO2 07/01/17 06:37 99.1 73 18 116/81 (93) 99 Intake and Output 07/01/17 07/01/17 07/02/17 08:00 16:00 00:00 Intake Total 240 ml Balance 240 ml Assessment & Plan Problem List: (1) Paranoid type schizophrenia, chronic state with acute exacerbation ICD Codes: F20.0 - Paranoid schizophrenia Assessment & Plan Continue current tx plan. Estimated LOS: days Justification for Cont. Inpt. impairments in reality testing Request HC Surrog/Guard Advoc?: Yes Rafia Gloria MD Jul 01, 2017 15:04
[2017-07-01 18:41] VITALS: BP 124/83; PULSE 71; RESP 18; TEMP 98.4; O2SAT 98
[2017-07-02 05:00] VITALS: BP 122/79; PULSE 70; RESP 17; TEMP 98.4; O2SAT 97
[2017-07-02] MEDS: PANTOPRAZOLE SOD 40 MG DELAYED RELEASE TAB PO SCH (09:39)
[2017-07-02] MEDS: OLANZapine 10 MG TAB PO SCH ×2 (09:39→21:00)
[2017-07-02] MEDS: METOPROLOL TARTRATE 25 MG TAB PO SCH ×2 (09:43→21:00)
[2017-07-02] MEDS: FERROUS SULFATE 325 MG (65 MG ELEMENTAL IRON) TAB PO SCH ×2 (13:19→17:41)
--- NOTE | 2017-07-02 18:02 | HHI.PYPN ---
Subjective Remarks Patient seen for follow-up, chart reviewed. Patient states that she is feeling "fine", reports having had a good weekend. She states feeling sleepy from the medications during the day but tries to stay active and participate in groups and activities. She states that she continues to have AH but are "far away...I can ignore them" and continues to state that they are from her "supernatural husbands and supernatural creatures that try and talk over the husbands". Patient requesting to wear casual clothing.. Review of Systems Except as stated in HPI: all other systems reviewed are Neg Objective Alert: Yes [place]: Person, Place, Date Mood: Calm Affect: Restricted (but moments which she would smile and laugh) Memory Intact: Comment (no gross deficits) Hallucinations: Auditory (denies at time of interview) Delusions: Yes Delusion Type: Other (bizarre) Suicidal: Ideation (denies SI) Homicidal: Ideation (denies HI) Insight/Judgment poor insight, fair impulse control, limited judgement Vitals/IOs Vital Signs Date Time Temp Pulse Resp B/P (MAP) Pulse Ox O2 Delivery O2 Flow Rate FiO2 07/02/17 05:00 98.4 70 17 122/79 (93) 97 Intake and Output 07/02/17 07/02/17 07/03/17 08:00 16:00 00:00 Intake Total 260 ml 260 ml Balance 260 ml 260 ml Assessment & Plan Problem List: (1) Paranoid type schizophrenia, chronic state with acute exacerbation ICD Codes: F20.0 - Paranoid schizophrenia Assessment & Plan Patient continues to endorse AH but less intense and able to ignore them and continues with bizarre delusions of "supernatural husbands and creatures". Patient is able to ask logical questions pertaining to referral to [facility]. Will add fluphenazine 2.5mg PO in the afternoon for adjunctive treatment as patient already on max dose for olanzapine. Continue to monitor medications response and ADRs. Discharge planning in progress. Justification for Cont. Inpt. At risk for further decompensation if at lower level of care Discharge Planning Patient to be discharged to a [facility] once accepted to one. Request HC Surrog/Guard Advoc?: Yes Robbie Garza MD Jul 02, 2017 18:02
[2017-07-02 21:30] VITALS: BP 147/82; PULSE 62; RESP 18; TEMP 97.9; O2SAT 100
[2017-07-02] MEDS ORDERED: PILL SPLITTER OTHER PRN (22:00)
[2017-07-03 06:00] VITALS: BP 116/59; PULSE 60; RESP 18; TEMP 97.6; O2SAT 100
[2017-07-03] MEDS: PANTOPRAZOLE SOD 40 MG DELAYED RELEASE TAB PO SCH (09:04)
[2017-07-03] MEDS: OLANZapine 10 MG TAB PO SCH ×2 (09:04→20:56)
[2017-07-03] MEDS: METOPROLOL TARTRATE 25 MG TAB PO SCH ×2 (09:05→20:55)
[2017-07-03] MEDS: FERROUS SULFATE 325 MG (65 MG ELEMENTAL IRON) TAB PO SCH ×2 (11:37→17:08)
--- NOTE | 2017-07-03 16:28 | HHI.PYPN ---
Subjective Remarks Patient seen for follow up; chart reviewed. Patient found sitting on hospital bed, states that she has been feeling "fine", and excited about having been visited by two different representatives of [facility]. She has chosen [facility] which she looks forward to living in. She reports that she has AH that are far away and sound softer. She continues to have bizarre delusion of having "supernatural husbands". Review of Systems Except as stated in HPI: all other systems reviewed are Neg Objective Alert: Yes [place]: Person, Place, Date Mood: Calm Affect: Restricted Memory Intact: Comment (no gross deficits) Hallucinations: Auditory (denies at time of interview) Delusions: Yes Delusion Type: Other (bizarre) Suicidal: Ideation (denies SI) Homicidal: Ideation (denies HI) Insight/Judgment Limited insight, impulse control and judgment Vitals/IOs Vital Signs Date Time Temp Pulse Resp B/P (MAP) Pulse Ox O2 Delivery O2 Flow Rate FiO2 07/03/17 06:00 97.6 60 18 116/59 (78) 100 Intake and Output 07/03/17 07/03/17 07/04/17 08:00 16:00 00:00 Intake Total 3980 ml Balance 3980 ml Assessment & Plan Problem List: (1) Paranoid type schizophrenia, chronic state with acute exacerbation ICD Codes: F20.0 - Paranoid schizophrenia Assessment & Plan Patient continues to bizarre delusion but improved cessation of AH. Patient has kept up with hygiene and noted to be participatory with groups and activities. No behavioral dyscontrol. Continue current treatment, discharge planning in progress. Justification for Cont. Inpt. At risk for further decompensation if at lower level of care. Request HC Surrog/Guard Advoc?: Yes Robbie Garza MD Jul 03, 2017 16:28
[2017-07-03 21:00] VITALS: BP 131/72; PULSE 90; RESP 18; TEMP 97.9; O2SAT 100
[2017-07-04 06:26] VITALS: BP 131/84; PULSE 77; RESP 16; TEMP 98.2; O2SAT 97
[2017-07-04] MEDS: PANTOPRAZOLE SOD 40 MG DELAYED RELEASE TAB PO SCH (09:00)
[2017-07-04] MEDS: OLANZapine 10 MG TAB PO SCH (09:00)
[2017-07-04] MEDS: METOPROLOL TARTRATE 25 MG TAB PO SCH (09:00)
--- NOTE | 2017-07-04 11:04 | PD.TTN ---
Patient Problems 1. Discharge planning 2. Medication compliance 3. Knowledge deficit 4. Lack of coping skills Progress Toward Goals Provider Present: Dr. Ashly Garza Provider Input: Dr. Joseph requested an update regarding patient's medication compliance, mental status, and reason for admission. Nurse(s) Input: Nurse Aldo reported the patient is a new admission and described her behavior to be bizarre. Aldo reported the patient is homeless after recently being evicted from her apartment. Patient is not forthcoming with information and reported her husbands are "supernatural." Psych Therapist Input: Counselor has yet to meet with this patient as she is a new admission from over the weekend. Counselor will meet with patient today. Occupational Therapist Input: Patient is not attending groups. Documentation Scribe: Steve Valentine Date Resolved: May 21, 2017 Christie OakleyRenetta Jul 04, 2017 11:04
--- NOTE | 2017-07-04 11:10 | PD.TTN ---
Patient Problems 1. Discharge planning 2. Medication compliance 3. Knowledge deficit 4. Lack of coping skills Progress Toward Goals Provider Present: Dr. Ashly Garza Provider Input: Dr. Garza reported the patient will be discharged today. Nurse(s) Input: Psychiatric Counselors Present: STEVE Valentine Psych Therapist Input: Counselor reported the patient will be discharged to [facility] today. Group Spec/RT/OT/BAILON Present: Eliecer Kumar OT, ADAMARIS Mccloud Occupational Therapist Input: Otis reported the patient occasionally attends groups. Discharge Plan [facility] Documentation Scribe: Steve Valetnine Date Resolved: Jul 04, 2017 Christie Oakley Jul 04, 2017 11:10
[2017-07-04] MEDS ORDERED: OLAN20TA PO (11:28)
[2017-07-04] MEDS ORDERED: METO25TA3 PO (11:28)
[2017-07-04] MEDS ORDERED: FLUP5TAB PO (11:28)
[2017-07-04] MEDS ORDERED: AMLO10 PO (11:28)
[2017-07-04] MEDS ORDERED: PANT40TA3 PO (11:28)
[2017-07-04] MEDS ORDERED: FERR325T20 PO (11:28)
[2017-07-04] MEDS ORDERED: OLAN10TA PO (11:28)
[2017-07-04] MEDS: FERROUS SULFATE 325 MG (65 MG ELEMENTAL IRON) TAB PO SCH (12:00)
--- NOTE | 2017-07-04 23:01 | HHI.DS ---
Psychiatry Discharge Summary Inpatient Psychiatric care?: Yes Advance Directive: No Reason Not Provided: . Mental Health AdvanceDirective: No Health Care Proxy: No Admission Admission Date May 19, 2017 at 11:35 Admission Diagnosis: (1) Paranoid type schizophrenia, chronic state with acute exacerbation ICD Code: F20.0 - Paranoid schizophrenia Brief History As per Miss Seo in the ER : "42 year-old woman with a reported history os schizophrenia , untreated x 4 years who presents to the emergency department under a Brooke act. The BA alleges that she was evicted and when deputies arrived she barricaded herself in the residence. When they were able to enter the residence she covered her face and would not speak with them. She was placed under BA as the police felt she was unsafe and needed treatment. On arrival to Ed she was not providing any meaningful history to ED provider. Making statements such as "it's really self explanatory but I cannot explain it". EMR is reviewed. She was evaluated in February after she was placed under a BA. At the time she was living with her and had been living without water and electricity x 6 months. She could not provide an explanation for that. She was released to the care of her Ritchie. Patient is seen with Nurse Hernandez. She is alert and oriented. She is withdrawn and does not initiate any contact with staff. She maintain little to no eye contact. Her affect is blunted . Her speech is monotone. She appears internally preoccupied although she denies hallucinations. When asked about why she was evicted she thinks for a while and then states " something happened". When asked about her she states " people happened that are not my ". When inquiring about family states " I have no family and I have never had any family. Nothing has happened." When asked where she will go if discharged states " I will just have to listen to my thoughts about it". In terms of substance she presents wit negative toxicology." 05/20/2017 the patient is a 42-year-old woman, domiciled with her in [facility], with psychiatric history of schizophrenia, noncompliant with medications, medical history of hypertension, who was brought to the ER under Brooke act due to erratic and aggressive behavior at home, as per EMR documentation patient barricaded in her house. No psychotic evaluation today patient seems to be distant, oppositional and resistant. She answers some selective question but, in a very avoiding way. Patient says that she doesn't understand what she is here. She becomes disorganized and tangential. She says that everything about her needs to be asked to her "super hero and supernatural ". Patient is oddly related, guarded, visibly internally preoccupied and paranoid. Patient has been isolated in the unit, avoiding contact with staff and peers, refusing to take her medications. Tobacco Use In Past 30 Days: No Tobacco Past 30 Days Alcohol Use: Never Hospital Course Patient is a 42-year-old woman, domiciled with her in [facility], with psychiatric history of schizophrenia, noncompliant with medications, medical history of hypertension, who was brought to the ER under Brooke act due to erratic and aggressive behavior at home, as per EMR documentation patient barricaded in her house. Patient was admitted to the inpatient psychiatry unit for stabilization. Patient was started on olanzapine 5mg PO BID and titrated up to 10mg PO am and 20mg PO HS as well as the addition of fluphenazine 2.5 mg PO in the afternoon which she began to tolerate and respond well to. Patient did not endorse feeling sad or depressed nor having suicidal ideation and noted to have had decrease in AH; participating in groups and maintaining hygiene.. Upon discharge patient had no physical complaints, noted to be calm and cooperative, noted to have maintained stable mood with no perceptual disturbances or suicidal ideations. Patient advised to continue medication regimen along with adherence to follow up appointments for continuity of care. Patient agreed with plan. Results Blood Pressure 131 / 84 Vital Signs Date Time Temp Pulse Resp B/P (MAP) Pulse Ox O2 Delivery O2 Flow Rate FiO2 07/04/17 06:26 98.2 77 16 131/84 (100) 97 Laboratory Results Test 05/20/17 11:45 Cholesterol Level 152 MG/DL (120-200) HDL Cholesterol 85.1 MG/DL (40.0-60.0) Hemoglobin A1c 5.0 % (4.3-6.0) LDL Cholesterol 57 MG/DL (0-99) Triglycerides Level 49 MG/DL (42-150) Summary of Procedures none Imaging Last Impressions Pelvis Ultrasound 05/29/17 0000 Signed Impressions: Service Date/Time: Monday, May 29, 2017 15:57 - CONCLUSION: 1. Uterine fibroids and a small amount of free fluid. 2. Probable hemorrhagic cyst left ovary. 3. Suggest a short interval followup ultrasound in 6 weeks. Gigi Neal MD Pending results at discharge: No Medications # of Antipsychotic meds at D/C: 2 Approp Antipsych med options 1 - Minimum of three failed multiple trials of monotherapy. 2 - Documented plan to taper to monotherapy due to previous use of multiple meds OR cross-taper in progress at D/C. 3 - Documentation of augmentation of Clozapine. 4 - Justification other than those listed in allowable values 1-3, document here : Discharge Discharge Date: Jul 04, 2017 Discharge Diagnosis: (1) Paranoid type schizophrenia, chronic state with acute exacerbation Diagnosis: Principal ICD Code: F20.0 - Paranoid schizophrenia Mental Status Exam at Disch Appearance/Behavior: appears stated age, in casual clothing, calm and cooperative with interview. Fair eye contact Speech: normal rate, tone and prosody Mood: "pretty good" Affect: euthymic TP: linear, future oriented TC: denies SI, HI, AVH or delusions Insight/Impulse control/judgment: fair A&O x3 Pt Condition on Discharge: Stable Discharge Disposition: [facility] Discharge Instructions Diet Instructions: As Tolerated, No Restrictions Activities you can perform: Regular-No Restrictions Scheduled Appointment: [facility] Appointment Date: Jul 05, 2017 Appointment Time: 7:30 a.m. Discharge Time > 30 minutes Discharge/Advance Care Plan Health Problems: (1) Paranoid type schizophrenia, chronic state with acute exacerbation Goals to promote your health * To prevent worsening of your condition and complications * To maintain your health at the optimal level Directions to meet your goals Take your medications as prescribed Follow your dietary instruction Follow activity as directed Keep your appointments as scheduled Take your immunizations and boosters as scheduled If your symptoms worsen call your PCP, if no PCP go to Urgent Care Center or Emergency Room For 30/04 questions related to your inpatient stay or results of tests pending at discharge, please contact Dr. Robbie Garza at Smoking is Dangerous to Your Health. Avoid second hand smoking Robbie Garza MD Jul 04, 2017 23:01
== END 2017-07-04 13:30 | DRG 885 ==
LOC: NEPD 09:39 → NEDA 05-19 11:35 → H260 05-19 13:12
PROVIDERS: ADMIT Student in an Organized Health Care Education/Training Program; ATTEND Student in an Organized Health Care Education/Training Program
DX: F20.0 Paranoid schizophrenia (principal); Z91.14 Patient's other noncompliance with medication regimen; I10 Essential (primary) hypertension; Z59.0 Homelessness; D50.9 Iron deficiency anemia, unspecified
CPT/HCPCS: 76856; 80048; 80053; 80061; 82607; 82728; 82746; 83036; 83540; 83550; 83735; 85025; 85027; J2060